=== PATIENT | female | born 1960 | race Two or more races ===

== ENCOUNTER 2020-07-03 12:17 | Outpatient (REF) | payer OTHER, SELFPAY | END 2020-07-03 12:18 | disposition home or self-care (01) | LOC: HO.LAB 12:17 | PROVIDERS: Visit Provider Internal Medicine | DX: Z20.828 Contact with and (suspected) exposure to other viral communicable diseases (principal) | CPT/HCPCS: C9803; U0003 ==

== ENCOUNTER 2020-12-15 12:19 | Inpatient (IN) | payer OTHER, SELFPAY ==
--- NOTE | 2020-12-15 | ECG_ITS ---
Test Reason : CLEARANCE Blood Pressure : / mmHG Vent. Rate : 062 BPM Atrial Rate : 062 BPM P-R Int : 148 ms QRS Dur : 090 ms QT Int : 426 ms P-R-T Axes : 025 -01 -10 degrees QTc Int : 432 ms Normal sinus rhythm Minimal voltage criteria for LVH, may be normal variant T wave abnormality, consider inferior ischemia T wave abnormality, consider anterior ischemia Abnormal ECG When compared with ECG of 23-FEB-2007 08:08, Non-specific change in ST segment in Anterior leads Inverted T waves have replaced nonspecific T wave abnormality in Inferior leads T wave inversion now evident in Anterior leads Referred By: Katia Candelario Electronically Signed By:CR DYE
--- NOTE | ~2020-12-15 | CT_ITS ---
EXAMINATION: CT HEAD WITHOUT CONTRAST CLINICAL INFORMATION: Altered mental status COMPARISON: None TECHNIQUE: Contiguous axial imaging was performed from the skull base to vertex without intravenous administration of contrast. This CT examination was performed using dose optimization techniques as appropriate, variously including the following: *Automated exposure control *Adjustment of mA and/or kV according to patient size (this includes techniques or standardized protocols for targeted exams where dose is matched to indication/reason for exam; i.e. extremities or head) *Use of iterative reconstruction technique DLP: 566 mGy-cm FINDINGS: There is no evidence of acute intracranial hemorrhage or territorial infarction. No abnormal mass effect or midline shift is seen. Jacques to white matter differentiation is well preserved. No extra-axial fluid collections are identified. The ventricles are normal in size. There is no abnormal attenuation within the brain parenchyma. Bilateral basal ganglia calcifications are noted. The osseous structures and soft tissues are normal. Mild mucosal thickening of the left maxillary sinus. CT/CT head/brain wo con IMPRESSION: 1. No acute intracranial pathology. 2. Mild sinus disease.
[2020-12-15 12:38] VITALS: BP 117/75; PULSE 81; RESP 18; TEMP 36.9; O2SAT 96; BMI 33.7
--- NOTE | 2020-12-15 12:57 | ED_ITS ---
HPI - Psych General Chief Complaint: Psychiatric Symptoms <OSIEL Faulkner - Last Filed: 12/15/20 17:30> Stated Complaint: CRISIS <OSIEL Faulkner - Last Filed: 12/15/20 17:30> Time Seen by Provider: 12/15/20 12:52 <OSIEL Faulkner Last Filed: 12/15/20 17:30> Source: patient and family <OSIEL Faulkner - Last Filed: 12/15/20 17:30> Mode of arrival: ambulatory <OSIEL Faulkner - Last Filed: 12/15/20 17:30> Limitations: no limitations <OSIEL Faulkner Last Filed: 12/15/20 17:30> History of Present Illness HPI Narrative: 60 y/o female with history of anemia, hypothyroidism, degenerative joint disease, s/p hip replacement in the past, history of daily ETOH use who presents to the ED with her [employer] with reports of extreme paranoia evolving over the last 2 months. Her [employer] states that about 2 months ago the patient reported that her neighbors downloaded an sophia on their phones to record and monitor her on her Karyn and tablet. She thinks they are watching her and keeping track of her movements. She has been much more restless lately, wandering around stores when brought out, being more agitated and anxious. Her [employer] is a friend of the last 15 years and states this behavior is all new over the last 2 months. She is a daily drinker, 5-6 tall boys every night so she can sleep. She has been through alcohol withdrawal at home but never required hospitalization for it. Patient's neighbor told [employer] they saw her cut her screen in her 4th story apartment and she was planning on jumping out of it. No history of suicidal thoughts or attempts in the past. She denies drug use. <OSIEL Faulkner - Last Filed: 12/15/20 17:30> MD complaint: alcohol abuse <OSIEL Faulkner - Last Filed: 12/15/20 17:30> Onset (ago): month(s) (2) <OSIEL Faulkner Last Filed: 12/15/20 17:30> Duration: changing over time and getting worse <OSIEL Faulkner - Last Filed: 12/15/20 17:30> History of same: No <OSIEL Faulkner Last Filed: 12/15/20 17:30> Relieving factors: none <OSIEL Falukner Last Filed: 12/15/20 17:30> Exacerbating factors: alcohol <OSIEL Faulkner Last Filed: 12/15/20 17:30> Context: recent alcohol abuse <OSIEL Faulkner Last Filed: 12/15/20 17:30> Associated psychiatric symptoms: depression, suicidal ideation and delusions <OSIEL Faulkner Last Filed: 12/15/20 17:30> Associated symptoms: denies other symptoms <OSIEL Faulkner Last Filed: 12/15/20 17:30> Treatments prior to arrival: none <OSIEL Faulkner Last Filed: 12/15/20 17:30> If self harm: admits thoughts of self harm and has plan <OSIEL Faulkner Last Filed: 12/15/20 17:30> Related Data Home Medications: Home Medications Medication Instructions Recorded Confirmed levothyroxine 1 tab PO DAILY 12/15/20 12/15/20 trazodone 1 tab PO BEDTIME 12/15/20 12/15/20 <OSIEL Faulkner Last Filed: 12/15/20 17:30> Allergies/Adverse Reactions: Allergies Allergy/AdvReac Type Severity Reaction Status Date / Time metoclopramide AdvReac Unknown BRADYCARDIA Unverified 12/15/20 12:37 morphine AdvReac Unknown SEIZURE Unverified 12/15/20 12:37 <OSIEL Faulkner Last Filed: 12/15/20 17:30> Review of Systems Review of Systems: Constitutional: No Fever, No Chills ENT/Mouth: No sore throat, No Rhinorrhea, No Swallowing Difficulty Cardiovascular: No Chest Pain, No SOB, No Orthopnea, No Edema Respiratory: No Cough, No Sputum, No Wheezing, No dyspnea Gastrointestinal: No Nausea, No Vomiting, No Diarrhea, No abdominal Pain Genitourinary: No Dysuria, No Urinary Frequency, No Hematuria Musculoskeletal: No joint pain, No Myalgias Skin: No Skin Lesions, No rash Neuro: No Weakness, No Numbness, No Dizziness, No Headache Psych: + Anxiety/Panic, + Depression, +SI, no HI, no AH/VH Heme/Lymph: No Bruising, No Lymphadenopathy Endocrine: No Polyuria, No Polydipsia <OSIEL Faulkner - Last Filed: 12/15/20 17:30> [facility] Past Medical History Attestation statement: The following information was validated with the patient. <OSIEL Faulkner - Last Filed: 12/15/20 17:30> Medical History: Medical History (Updated 12/15/20 @ 17:28 by OSIEL Faulkner) Alcohol dependence Hypothyroidism <OSIEL Faulkner - Last Filed: 12/15/20 17:30> Social History Social History: Social History Advance Directives: No Advance Directives Information Provided: Yes Healthcare Proxy: Yes (Amy Barboza, sister [phone]) Guardian: No <OSIEL Faulkner - Last Filed: 12/15/20 17:30> Physical Exam Vital Signs: Vital Signs: Last Vital Signs Temp 98.4 F 12/16/20 03:09 Pulse 68 12/16/20 04:18 Resp 20 12/16/20 04:18 BP 111/51 L 12/16/20 04:18 Pulse Ox 96 12/16/20 04:18 Body Mass Index 33.7 Appearance: Alert. Oriented X3. No acute distress. Eyes: Pupils equal, round and reactive to light. ENT: Pharynx normal. Neck: Normal inspection. Neck supple. CVS: Normal heart rate and rhythm. Pulses normal. Respiratory: No respiratory distress. Breath sounds normal. Abdomen: Obese, Soft and nontender. +BS x4 Skin: Skin warm and dry. Normal skin color. Normal skin turgor. No rashes. Extremities: No lower extremity edema. Neuro/Psych: Oriented X 3. No motor deficit. No sensory deficit. Flat affect. Poor insight and judgement. +SI with plan. <OSIEL Faulkner - Last Filed: 12/15/20 17:30> Vital Signs: Last Vital Signs Temp 98.4 F 12/16/20 03:09 Pulse 68 12/16/20 04:18 Resp 20 12/16/20 04:18 BP 111/51 L 12/16/20 04:18 Pulse Ox 96 12/16/20 04:18 Body Mass Index 33.7 <Andre Cha NP - Last Filed: 12/15/20 18:31> Vital Signs: Last Vital Signs Temp 98.4 F 12/16/20 03:09 Pulse 68 12/16/20 04:18 Resp 20 12/16/20 04:18 BP 111/51 L 12/16/20 04:18 Pulse Ox 96 12/16/20 04:18 Body Mass Index 33.7 <Katia Candelario MD - Last Filed: 12/16/20 04:21> Course Course Course Narrative: 60 y/o female presenting with new onset of paranoia and delusions. Ongoing daily ETOH abuse. No history of similar behavior with new SI and plan. Will need to get full metabolic workup and have N seen her once medically cleared. <OSIEL Faulkner - Last Filed: 12/15/20 17:30> Patient is being admitted to . An EKG was done, patient has T-wave inversions in multiple leads including III, aVF, V1 through V5. Patient has no chest pain. Patient is stable, troponin pending. EKG from 2006 for comparison is normal Head CT within normal limits There is no evidence of acute intracranial hemorrhage or territorial infarction. No abnormal mass effect or midline shift is seen. Jacques to white matter differentiation is well preserved. No extra-axial fluid collections are identified. The ventricles are normal in size. There is no abnormal attenuation within the brain parenchyma. Bilateral basal ganglia calcifications are noted. The osseous structures and soft tissues are normal. Mild mucosal thickening of the left maxillary sinus. CT/CT head/brain wo con IMPRESSION: 1. No acute intracranial pathology. 2. Mild sinus disease. Patient's 2nd troponin is 7.2, EKG 2. Shows no acute changes, similar to 1st EKG. Patient is medically cleared. <Katia Candelario MD - Last Filed: 12/16/20 04:21> Reevaluation(s) Reevaluation #1: TSH elevated but T4 is normal. Will need outpatient follow up for this. Her ETOh level was 14. Reports anxiety now. Was given 1 mg PO ativan. BHN pending. Will need to monitor CIWA scores for signs of withdrawal. Med rec completed. Physician observation started at 3pm. Patient placed in physician observation because patient is awaiting [facility] evaluation for the possible need of inpatient [facility] admission. At the time observation was started patient's vital signs were stable. Patient is alert and oriented. Neuro exam is non-focal. CV: RRR and lungs are clear. Will continue to monitor. <OSIEL Faulkner - Last Filed: 12/15/20 17:30> MDM - Psych Lab Data Result diagrams: : 12/15/20 13:50 12/15/20 13:50 <OSIEL Faulkner - Last Filed: 12/15/20 17:30> Labs: Lab Results 12/15/20 12/15/20 12/15/20 Range/Units 13:50 13:50 13:50 WBC 6.8 (4.8-10.8) X10*3/uL RBC 4.20 (4.20-5.50) X10*6/uL Hgb 13.2 (12.0-16.0) g/dl Hct 39.6 (37-47) % MCV 94.3 (80-98) fL MCH 31.4 (27.0-33.0) pg MCHC 33.3 (31.0-35.0) g/dl RDW 13.2 (11.0-16.0) % Plt Count 273 (160-400) X10*3/uL MPV 9.1 L (9.4-12.3) fL Immature Gran % (Auto) 0.6 H (0.0-0.4) % Neut % (Auto) 71.1 (45-73) % Lymph % (Auto) 21.3 (20-40) % [place] % (Auto) 5.4 (2-11) % Eos % (Auto) 0.9 (0-4) % Baso % (Auto) 0.7 (0-2) % Lymph # (Auto) 1.5 (1.2-4.9) X10*3/uL [place] # (Auto) 0.4 (0.1-1.2) X10*3/uL Eos # (Auto) 0.1 (0.0-0.4) X10*3/uL Baso # (Auto) 0.1 (0.0-0.2) X10*3/uL Abs Immat Gran (auto) 0.04 H (0.00-0.03) X10*3/uL Absolute Neuts (auto) 4.9 (2.0-8.3) X10*3/uL Absolute Nucleated RBC 0.000 (0.0-0.012) X10*3/uL Nucleated RBC % (auto) 0.0 (0.0-0.2) /100WBC Sodium 138 (135-145) mmol/L Potassium 4.2 (3.3-5.1) mmol/L Chloride 103 (96-108) mmol/L Carbon Dioxide 25 (22-29) mmol/L Anion Gap 14 (12-20) BUN 10 (9-16) mg/dL Creatinine 0.80 (0.5-1.4) mg/dL Estim Creat Clear Calc 42.2 Estimated GFR > 60 Random Glucose 138 H (60-115) mg/dL Calcium 9.6 (8.4-10.2) mg/dL Magnesium 2.2 (1.6-2.6) mg/dL Total Bilirubin 0.6 (0.0-1.0) mg/dL Direct Bilirubin 0.3 (0.0-0.5) mg/dL AST 67 H (5-31) U/L ALT 50 H (0-31) U/L Alkaline Phosphatase 74 (39-117) U/L Troponin I High Sens (<3.5-17.0) ng/L Total Protein 7.9 (6.5-8.0) g/dL Albumin 4.4 (3.5-5.0) g/dL TSH (0.32-4.0) uIU/mL Free T4 (0.71-1.85) ng/dL Ethyl Alcohol mg/dL COVID-19 ([facility]IS) Negative (Negative) COVID-19 Clin Com See Note 12/15/20 12/15/20 12/16/20 Range/Units 13:50 13:50 00:15 WBC (4.8-10.8) X10*3/uL RBC (4.20-5.50) X10*6/uL Hgb (12.0-16.0) g/dl Hct (37-47) % MCV (80-98) fL MCH (27.0-33.0) pg MCHC (31.0-35.0) g/dl RDW (11.0-16.0) % Plt Count (160-400) X10*3/uL MPV (9.4-12.3) fL Immature Gran % (Auto) (0.0-0.4) % Neut % (Auto) (45-73) % Lymph % (Auto) (20-40) % [place] % (Auto) (2-11) % Eos % (Auto) (0-4) % Baso % (Auto) (0-2) % Lymph # (Auto) (1.2-4.9) X10*3/uL [place] # (Auto) (0.1-1.2) X10*3/uL Eos # (Auto) (0.0-0.4) X10*3/uL Baso # (Auto) (0.0-0.2) X10*3/uL Abs Immat Gran (auto) (0.00-0.03) X10*3/uL Absolute Neuts (auto) (2.0-8.3) X10*3/uL Absolute Nucleated RBC (0.0-0.012) X10*3/uL Nucleated RBC % (auto) (0.0-0.2) /100WBC Sodium (135-145) mmol/L Potassium (3.3-5.1) mmol/L Chloride (96-108) mmol/L Carbon Dioxide (22-29) mmol/L Anion Gap (12-20) BUN (9-16) mg/dL Creatinine (0.5-1.4) mg/dL Estim Creat Clear Calc Estimated GFR Random Glucose (60-115) mg/dL Calcium (8.4-10.2) mg/dL Magnesium (1.6-2.6) mg/dL Total Bilirubin (0.0-1.0) mg/dL Direct Bilirubin (0.0-0.5) mg/dL AST (5-31) U/L ALT (0-31) U/L Alkaline Phosphatase (39-117) U/L Troponin I High Sens 7.2 (<3.5-17.0) ng/L Total Protein (6.5-8.0) g/dL Albumin (3.5-5.0) g/dL TSH 10.77 H (0.32-4.0) uIU/mL Free T4 0.73 (0.71-1.85) ng/dL Ethyl Alcohol 14 mg/dL COVID-19 ([facility]IS) (Negative) COVID-19 Clin Com 12/16/20 Range/Units 03:15 WBC (4.8-10.8) X10*3/uL RBC (4.20-5.50) X10*6/uL Hgb (12.0-16.0) g/dl Hct (37-47) % MCV (80-98) fL MCH (27.0-33.0) pg MCHC (31.0-35.0) g/dl RDW (11.0-16.0) % Plt Count (160-400) X10*3/uL MPV (9.4-12.3) fL Immature Gran % (Auto) (0.0-0.4) % Neut % (Auto) (45-73) % Lymph % (Auto) (20-40) % [place] % (Auto) (2-11) % Eos % (Auto) (0-4) % Baso % (Auto) (0-2) % Lymph # (Auto) (1.2-4.9) X10*3/uL [place] # (Auto) (0.1-1.2) X10*3/uL Eos # (Auto) (0.0-0.4) X10*3/uL Baso # (Auto) (0.0-0.2) X10*3/uL Abs Immat Gran (auto) (0.00-0.03) X10*3/uL Absolute Neuts (auto) (2.0-8.3) X10*3/uL Absolute Nucleated RBC (0.0-0.012) X10*3/uL Nucleated RBC % (auto) (0.0-0.2) /100WBC Sodium (135-145) mmol/L Potassium (3.3-5.1) mmol/L Chloride (96-108) mmol/L Carbon Dioxide (22-29) mmol/L Anion Gap (12-20) BUN (9-16) mg/dL Creatinine (0.5-1.4) mg/dL Estim Creat Clear Calc Estimated GFR Random Glucose (60-115) mg/dL Calcium (8.4-10.2) mg/dL Magnesium (1.6-2.6) mg/dL Total Bilirubin (0.0-1.0) mg/dL Direct Bilirubin (0.0-0.5) mg/dL AST (5-31) U/L ALT (0-31) U/L Alkaline Phosphatase (39-117) U/L Troponin I High Sens 7.2 (<3.5-17.0) ng/L Total Protein (6.5-8.0) g/dL Albumin (3.5-5.0) g/dL TSH (0.32-4.0) uIU/mL Free T4 (0.71-1.85) ng/dL Ethyl Alcohol mg/dL COVID-19 ([facility]IS) (Negative) COVID-19 Clin Com <OSIEL Faulkner - Last Filed: 12/15/20 17:30> Lab Results 12/15/20 12/15/20 12/15/20 Range/Units 13:50 13:50 13:50 WBC 6.8 (4.8-10.8) X10*3/uL RBC 4.20 (4.20-5.50) X10*6/uL Hgb 13.2 (12.0-16.0) g/dl Hct 39.6 (37-47) % MCV 94.3 (80-98) fL MCH 31.4 (27.0-33.0) pg MCHC 33.3 (31.0-35.0) g/dl RDW 13.2 (11.0-16.0) % Plt Count 273 (160-400) X10*3/uL MPV 9.1 L (9.4-12.3) fL Immature Gran % (Auto) 0.6 H (0.0-0.4) % Neut % (Auto) 71.1 (45-73) % Lymph % (Auto) 21.3 (20-40) % [place] % (Auto) 5.4 (2-11) % Eos % (Auto) 0.9 (0-4) % Baso % (Auto) 0.7 (0-2) % Lymph # (Auto) 1.5 (1.2-4.9) X10*3/uL [place] # (Auto) 0.4 (0.1-1.2) X10*3/uL Eos # (Auto) 0.1 (0.0-0.4) X10*3/uL Baso # (Auto) 0.1 (0.0-0.2) X10*3/uL Abs Immat Gran (auto) 0.04 H (0.00-0.03) X10*3/uL Absolute Neuts (auto) 4.9 (2.0-8.3) X10*3/uL Absolute Nucleated RBC 0.000 (0.0-0.012) X10*3/uL Nucleated RBC % (auto) 0.0 (0.0-0.2) /100WBC Sodium 138 (135-145) mmol/L Potassium 4.2 (3.3-5.1) mmol/L Chloride 103 (96-108) mmol/L Carbon Dioxide 25 (22-29) mmol/L Anion Gap 14 (12-20) BUN 10 (9-16) mg/dL Creatinine 0.80 (0.5-1.4) mg/dL Estim Creat Clear Calc 42.2 Estimated GFR > 60 Random Glucose 138 H (60-115) mg/dL Calcium 9.6 (8.4-10.2) mg/dL Magnesium 2.2 (1.6-2.6) mg/dL Total Bilirubin 0.6 (0.0-1.0) mg/dL Direct Bilirubin 0.3 (0.0-0.5) mg/dL AST 67 H (5-31) U/L ALT 50 H (0-31) U/L Alkaline Phosphatase 74 (39-117) U/L Troponin I High Sens (<3.5-17.0) ng/L Total Protein 7.9 (6.5-8.0) g/dL Albumin 4.4 (3.5-5.0) g/dL TSH (0.32-4.0) uIU/mL Free T4 (0.71-1.85) ng/dL Ethyl Alcohol mg/dL COVID-19 ([facility]IS) Negative (Negative) COVID-19 Clin Com See Note 05/04/21 05/04/21 05/05/21 Range/Units 13:50 13:50 00:15 WBC (4.8-10.8) X10*3/uL RBC (4.20-5.50) X10*6/uL Hgb (12.0-16.0) g/dl Hct (37-47) % MCV (80-98) fL MCH (27.0-33.0) pg MCHC (31.0-35.0) g/dl RDW (11.0-16.0) % Plt Count (160-400) X10*3/uL MPV (9.4-12.3) fL Immature Gran % (Auto) (0.0-0.4) % Neut % (Auto) (45-73) % Lymph % (Auto) (20-40) % [place] % (Auto) (2-11) % Eos % (Auto) (0-4) % Baso % (Auto) (0-2) % Lymph # (Auto) (1.2-4.9) X10*3/uL [place] # (Auto) (0.1-1.2) X10*3/uL Eos # (Auto) (0.0-0.4) X10*3/uL Baso # (Auto) (0.0-0.2) X10*3/uL Abs Immat Gran (auto) (0.00-0.03) X10*3/uL Absolute Neuts (auto) (2.0-8.3) X10*3/uL Absolute Nucleated RBC (0.0-0.012) X10*3/uL Nucleated RBC % (auto) (0.0-0.2) /100WBC Sodium (135-145) mmol/L Potassium (3.3-5.1) mmol/L Chloride (96-108) mmol/L Carbon Dioxide (22-29) mmol/L Anion Gap (12-20) BUN (9-16) mg/dL Creatinine (0.5-1.4) mg/dL Estim Creat Clear Calc Estimated GFR Random Glucose (60-115) mg/dL Calcium (8.4-10.2) mg/dL Magnesium (1.6-2.6) mg/dL Total Bilirubin (0.0-1.0) mg/dL Direct Bilirubin (0.0-0.5) mg/dL AST (5-31) U/L ALT (0-31) U/L Alkaline Phosphatase (39-117) U/L Troponin I High Sens 7.2 (<3.5-17.0) ng/L Total Protein (6.5-8.0) g/dL Albumin (3.5-5.0) g/dL TSH 10.77 H (0.32-4.0) uIU/mL Free T4 0.73 (0.71-1.85) ng/dL Ethyl Alcohol 14 mg/dL COVID-19 ([facility]IS) (Negative) COVID-19 Clin Com 12/16/20 Range/Units 03:15 WBC (4.8-10.8) X10*3/uL RBC (4.20-5.50) X10*6/uL Hgb (12.0-16.0) g/dl Hct (37-47) % MCV (80-98) fL MCH (27.0-33.0) pg MCHC (31.0-35.0) g/dl RDW (11.0-16.0) % Plt Count (160-400) X10*3/uL MPV (9.4-12.3) fL Immature Gran % (Auto) (0.0-0.4) % Neut % (Auto) (45-73) % Lymph % (Auto) (20-40) % [place] % (Auto) (2-11) % Eos % (Auto) (0-4) % Baso % (Auto) (0-2) % Lymph # (Auto) (1.2-4.9) X10*3/uL [place] # (Auto) (0.1-1.2) X10*3/uL Eos # (Auto) (0.0-0.4) X10*3/uL Baso # (Auto) (0.0-0.2) X10*3/uL Abs Immat Gran (auto) (0.00-0.03) X10*3/uL Absolute Neuts (auto) (2.0-8.3) X10*3/uL Absolute Nucleated RBC (0.0-0.012) X10*3/uL Nucleated RBC % (auto) (0.0-0.2) /100WBC Sodium (135-145) mmol/L Potassium (3.3-5.1) mmol/L Chloride (96-108) mmol/L Carbon Dioxide (22-29) mmol/L Anion Gap (12-20) BUN (9-16) mg/dL Creatinine (0.5-1.4) mg/dL Estim Creat Clear Calc Estimated GFR Random Glucose (60-115) mg/dL Calcium (8.4-10.2) mg/dL Magnesium (1.6-2.6) mg/dL Total Bilirubin (0.0-1.0) mg/dL Direct Bilirubin (0.0-0.5) mg/dL AST (5-31) U/L ALT (0-31) U/L Alkaline Phosphatase (39-117) U/L Troponin I High Sens 7.2 (<3.5-17.0) ng/L Total Protein (6.5-8.0) g/dL Albumin (3.5-5.0) g/dL TSH (0.32-4.0) uIU/mL Free T4 (0.71-1.85) ng/dL Ethyl Alcohol mg/dL COVID-19 ([facility]) (Negative) COVID-19 Clin Com <Andre Cha NP - Last Filed: 12/15/20 18:31> Lab Results 12/15/20 12/15/20 12/15/20 Range/Units 13:50 13:50 13:50 WBC 6.8 (4.8-10.8) X10*3/uL RBC 4.20 (4.20-5.50) X10*6/uL Hgb 13.2 (12.0-16.0) g/dl Hct 39.6 (37-47) % MCV 94.3 (80-98) fL MCH 31.4 (27.0-33.0) pg MCHC 33.3 (31.0-35.0) g/dl RDW 13.2 (11.0-16.0) % Plt Count 273 (160-400) X10*3/uL MPV 9.1 L (9.4-12.3) fL Immature Gran % (Auto) 0.6 H (0.0-0.4) % Neut % (Auto) 71.1 (45-73) % Lymph % (Auto) 21.3 (20-40) % [place] % (Auto) 5.4 (2-11) % Eos % (Auto) 0.9 (0-4) % Baso % (Auto) 0.7 (0-2) % Lymph # (Auto) 1.5 (1.2-4.9) X10*3/uL [place] # (Auto) 0.4 (0.1-1.2) X10*3/uL Eos # (Auto) 0.1 (0.0-0.4) X10*3/uL Baso # (Auto) 0.1 (0.0-0.2) X10*3/uL Abs Immat Gran (auto) 0.04 H (0.00-0.03) X10*3/uL Absolute Neuts (auto) 4.9 (2.0-8.3) X10*3/uL Absolute Nucleated RBC 0.000 (0.0-0.012) X10*3/uL Nucleated RBC % (auto) 0.0 (0.0-0.2) /100WBC Sodium 138 (135-145) mmol/L Potassium 4.2 (3.3-5.1) mmol/L Chloride 103 (96-108) mmol/L Carbon Dioxide 25 (22-29) mmol/L Anion Gap 14 (12-20) BUN 10 (9-16) mg/dL Creatinine 0.80 (0.5-1.4) mg/dL Estim Creat Clear Calc 42.2 Estimated GFR > 60 Random Glucose 138 H (60-115) mg/dL Calcium 9.6 (8.4-10.2) mg/dL Magnesium 2.2 (1.6-2.6) mg/dL Total Bilirubin 0.6 (0.0-1.0) mg/dL Direct Bilirubin 0.3 (0.0-0.5) mg/dL AST 67 H (5-31) U/L ALT 50 H (0-31) U/L Alkaline Phosphatase 74 (39-117) U/L Troponin I High Sens (<3.5-17.0) ng/L Total Protein 7.9 (6.5-8.0) g/dL Albumin 4.4 (3.5-5.0) g/dL TSH (0.32-4.0) uIU/mL Free T4 (0.71-1.85) ng/dL Ethyl Alcohol mg/dL COVID-19 ([facility]IS) Negative (Negative) COVID-19 Clin Com See Note 12/15/20 12/15/20 12/16/20 Range/Units 13:50 13:50 00:15 WBC (4.8-10.8) X10*3/uL RBC (4.20-5.50) X10*6/uL Hgb (12.0-16.0) g/dl Hct (37-47) % MCV (80-98) fL MCH (27.0-33.0) pg MCHC (31.0-35.0) g/dl RDW (11.0-16.0) % Plt Count (160-400) X10*3/uL MPV (9.4-12.3) fL Immature Gran % (Auto) (0.0-0.4) % Neut % (Auto) (45-73) % Lymph % (Auto) (20-40) % [place] % (Auto) (2-11) % Eos % (Auto) (0-4) % Baso % (Auto) (0-2) % Lymph # (Auto) (1.2-4.9) X10*3/uL [place] # (Auto) (0.1-1.2) X10*3/uL Eos # (Auto) (0.0-0.4) X10*3/uL Baso # (Auto) (0.0-0.2) X10*3/uL Abs Immat Gran (auto) (0.00-0.03) X10*3/uL Absolute Neuts (auto) (2.0-8.3) X10*3/uL Absolute Nucleated RBC (0.0-0.012) X10*3/uL Nucleated RBC % (auto) (0.0-0.2) /100WBC Sodium (135-145) mmol/L Potassium (3.3-5.1) mmol/L Chloride (96-108) mmol/L Carbon Dioxide (22-29) mmol/L Anion Gap (12-20) BUN (9-16) mg/dL Creatinine (0.5-1.4) mg/dL Estim Creat Clear Calc Estimated GFR Random Glucose (60-115) mg/dL Calcium (8.4-10.2) mg/dL Magnesium (1.6-2.6) mg/dL Total Bilirubin (0.0-1.0) mg/dL Direct Bilirubin (0.0-0.5) mg/dL AST (5-31) U/L ALT (0-31) U/L Alkaline Phosphatase (39-117) U/L Troponin I High Sens 7.2 (<3.5-17.0) ng/L Total Protein (6.5-8.0) g/dL Albumin (3.5-5.0) g/dL TSH 10.77 H (0.32-4.0) uIU/mL Free T4 0.73 (0.71-1.85) ng/dL Ethyl Alcohol 14 mg/dL COVID-19 ([facility]) (Negative) COVID-19 Clin Com 12/16/20 Range/Units 03:15 WBC (4.8-10.8) X10*3/uL RBC (4.20-5.50) X10*6/uL Hgb (12.0-16.0) g/dl Hct (37-47) % MCV (80-98) fL MCH (27.0-33.0) pg MCHC (31.0-35.0) g/dl RDW (11.0-16.0) % Plt Count (160-400) X10*3/uL MPV (9.4-12.3) fL Immature Gran % (Auto) (0.0-0.4) % Neut % (Auto) (45-73) % Lymph % (Auto) (20-40) % [place] % (Auto) (2-11) % Eos % (Auto) (0-4) % Baso % (Auto) (0-2) % Lymph # (Auto) (1.2-4.9) X10*3/uL [place] # (Auto) (0.1-1.2) X10*3/uL Eos # (Auto) (0.0-0.4) X10*3/uL Baso # (Auto) (0.0-0.2) X10*3/uL Abs Immat Gran (auto) (0.00-0.03) X10*3/uL Absolute Neuts (auto) (2.0-8.3) X10*3/uL Absolute Nucleated RBC (0.0-0.012) X10*3/uL Nucleated RBC % (auto) (0.0-0.2) /100WBC Sodium (135-145) mmol/L Potassium (3.3-5.1) mmol/L Chloride (96-108) mmol/L Carbon Dioxide (22-29) mmol/L Anion Gap (12-20) BUN (9-16) mg/dL Creatinine (0.5-1.4) mg/dL Estim Creat Clear Calc Estimated GFR Random Glucose (60-115) mg/dL Calcium (8.4-10.2) mg/dL Magnesium (1.6-2.6) mg/dL Total Bilirubin (0.0-1.0) mg/dL Direct Bilirubin (0.0-0.5) mg/dL AST (5-31) U/L ALT (0-31) U/L Alkaline Phosphatase (39-117) U/L Troponin I High Sens 7.2 (<3.5-17.0) ng/L Total Protein (6.5-8.0) g/dL Albumin (3.5-5.0) g/dL TSH (0.32-4.0) uIU/mL Free T4 (0.71-1.85) ng/dL Ethyl Alcohol mg/dL COVID-19 ([facility]) (Negative) COVID-19 Clin Com <Katia Candelario MD - Last Filed: 12/16/20 04:21> Discharge Plan Discharge Prescriptions: No Action levothyroxine 175 mcg tablet 1 tab PO DAILY RF: 0 trazodone 50 mg tablet 1 tab PO BEDTIME RF: 0 <OSIEL Faulkner - Last Filed: 12/15/20 17:30>
[2020-12-15 13:57] LABS: MANUAL DIFF FLAG NO
[2020-12-15 13:58] LABS: Basophils Absolute Auto 0.1 X10*3/uL (0.0-0.2); Basophils Percent Auto 0.7 % (0-2); Eosinophils Absolute Auto 0.1 X10*3/uL (0.0-0.4); Eosinophils Percent Auto 0.9 % (0-4); Hematocrit 39.6 % (37-47); Hemoglobin 13.2 g/dl (12.0-16.0); Imm Gran Abs Auto 0.04 X10*3/uL (0.00-0.03); Imm Gran Pct Auto 0.6 % (0.0-0.4); Lymphocytes Absolute Auto 1.5 X10*3/uL (1.2-4.9); Lymphocytes Percent Auto 21.3 % (20-40); Mean Corpuscular HGB Conc 33.3 g/dl (31.0-35.0); Mean Corpuscular Hemoglobin 31.4 pg (27.0-33.0); Mean Corpuscular Volume 94.3 fL (80-98); Mean Platelet Volume 9.1 fL (9.4-12.3); Monocytes Absolute Auto 0.4 X10*3/uL (0.1-1.2); Monocytes Percent Auto 5.4 % (2-11); Neutrophils Absolute Auto 4.9 X10*3/uL (2.0-8.3); Neutrophils Percent Auto 71.1 % (45-73); Platelet Count 273 X10*3/uL (160-400); Red Cell Distribution Width 13.2 % (11.0-16.0); White Blood Count 6.8 X10*3/uL (4.8-10.8)
[2020-12-15 14:14] LABS: COVID-19 Test Negative (Negative); IDNOW Serial# 08D9AD1C
[2020-12-15 14:25] LABS: Ethanol 14 mg/dL
[2020-12-15 14:27] LABS: Alanine Aminotransferase 50 U/L (0-31); Albumin Level 4.4 g/dL (3.5-5.0); Alkaline Phosphatase 74 U/L (39-117); Anion Gap 14 (12-20); Aspartate Amino Transferase 67 U/L (5-31); Bilirubin Direct 0.3 mg/dL (0.0-0.5); Bilirubin Total 0.6 mg/dL (0.0-1.0); Blood Urea Nitrogen 10 mg/dL (9-16); Calcium 9.6 mg/dL (8.4-10.2); Carbon Dioxide 25 mmol/L (22-29); Chloride 103 mmol/L (96-108); Creatinine Clr Calc Pharmacy 42.2; Estimated Glomerular Filt Rate > 60; Glucose Random 138 mg/dL (60-115); Magnesium 2.2 mg/dL (1.6-2.6); Potassium 4.2 mmol/L (3.3-5.1); Sodium 138 mmol/L (135-145); Total Protein 7.9 g/dL (6.5-8.0)
--- NOTE | 2020-12-15 14:38 | PC.NURSE ---
changed into hosp attire, cooperative, ate lunch, dtr at bedside
[2020-12-15 14:48] LABS: TSH reflex Free T4 10.77 uIU/mL (0.32-4.0)
[2020-12-15 15:51] LABS: Free T4 (Free Thyroxine) 0.73 ng/dL (0.71-1.85)
[2020-12-15] MEDS: LORazepam 1 MG TABLET PO (16:35)
--- NOTE | 2020-12-15 16:35 | PC.NURSE ---
pt dropped the first ativan on the floor, wasted in the pixes. medicated with second ativan
--- NOTE | 2020-12-15 18:47 | MHC.CARE ---
[facility] unable to provide a clinician to evaluate pt. CARE team completed evaluation. Disposition is for inpatient psychiatric admission due to pt's presentation of psychosis marked by paranoia, delusions, and significant impairments to insight, judgment, and impulse control. Pt has been presented for admission to , with plan for admission on third shift.
[2020-12-15] MEDS: LORazepam 1 MG TABLET 2 MG PO (18:48)
[2020-12-15 19:27] VITALS: BP 132/65; PULSE 78; RESP 16; O2SAT 98
--- NOTE | 2020-12-15 19:28 | PC.NURSE ---
Addendum entered by Ivone Frey LCSW 12/16/20 01:52: Pt was evaluated by CARE team with plan for inpatient psych placement. Original Note: pt has been up and pacing treatment area on 3 occasions from approx 1600to 1830. pt was medicated x 2 with ativan with desired affect. pt is easily redirectable and has tolerated all of meal tray. plan of care is to have cecelia waller pt in am. pt was made aware of plan of care via interpretter.
[2020-12-15 22:28] VITALS: BP 104/65; PULSE 74; RESP 20; TEMP 37.2; O2SAT 98
[2020-12-15] MEDS: traZODone HCL 50 MG TABLET PO (23:00)
--- NOTE | 2020-12-16 | ECG_ITS ---
Test Reason : ABNORMAL EKG Blood Pressure : / mmHG Vent. Rate : 062 BPM Atrial Rate : 062 BPM P-R Int : 136 ms QRS Dur : 092 ms QT Int : 430 ms P-R-T Axes : 011 037 000 degrees QTc Int : 436 ms Normal sinus rhythm T wave abnormality, consider anterior ischemia Abnormal ECG When compared with ECG of 15-DEC-2020 23:32, Inferior T inversion less prominent Referred By: Katia Candelario Electronically Signed By:CR DYE
[2020-12-16 00:19] VITALS: BP 109/61; PULSE 83; RESP 18; O2SAT 97
[2020-12-16 01:22] LABS: Troponin-I High Sensitivity 7.2 ng/L (<3.5-17.0)
[2020-12-16 03:09] VITALS: BP 115/54; PULSE 70; RESP 20; TEMP 36.9; O2SAT 96
--- NOTE | 2020-12-16 03:18 | PC.NURSE ---
Pt resting on stretcher in NAD, breathing with ease on RA. VSS. Pt on desk monitor, 2nd trop obtained and sent to lab for processing. Pt offers no complaints/concerns at this time. Stretcher in lowest locked position, rails raised, call hanson within reach. Sitter at bedside. Pt provided PO per request. All needs met. Pt aware of need for UA when pt able to provide.
[2020-12-16 03:50] LABS: Troponin-I High Sensitivity 7.2 ng/L (<3.5-17.0)
[2020-12-16 04:18] VITALS: BP 111/51; PULSE 68; RESP 20; O2SAT 96
--- NOTE | 2020-12-16 07:29 | PC.NURSE ---
PT SLEEPING,, AWAITING BED ON M5. SITTER MAINTAINED
--- NOTE | 2020-12-16 09:22 | PC.NURSE ---
REPORT TO JACQUIE ON M5
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
[2020-12-16] MEDS: Folic Acid 1 MG TABLET PO (14:28)
[2020-12-16] MEDS: Thiamine HCL 100 MG TABLET 200 MG PO (14:28)
[2020-12-16] MEDS: LORazepam 1 MG TABLET PO (14:28)
[2020-12-16] MEDS: risperiDONE 1 MG TABLET PO (14:28)
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
[2020-12-16 19:10] VITALS: BP 118/69; PULSE 80; TEMP 37
[2020-12-16] MEDS: risperiDONE 0.5 MG TABLET PO (20:48)
[2020-12-16] MEDS: traZODone HCL 50 MG TABLET PO (20:48)
[2020-12-16] MEDS: LORazepam 0.5 MG TABLET PO (20:48)
[2020-12-16] MEDS: Gabapentin 100 MG CAPSULE PO (20:48)
[2020-12-17 07:00] VITALS: BMI 34.3
[2020-12-17 08:30] LABS: Estimated Average Glucose 108 mg/dL; Hemoglobin A1c % 5.4 %
[2020-12-17 08:36] LABS: Cholesterol 234 mg/dL; HDL Cholesterol 98 mg/dL; LDL Cholesterol Calculated 120 mg/dl; Triglycerides 82 mg/dL
[2020-12-17] MEDS: Levothyroxine Sodium 175 MCG TABLET PO (08:41)
[2020-12-17] MEDS: Gabapentin 100 MG CAPSULE PO ×3 (08:41→20:38)
[2020-12-17] MEDS: Folic Acid 1 MG TABLET PO (08:42)
[2020-12-17] MEDS: LORazepam 0.5 MG TABLET PO ×3 (08:42→20:37)
[2020-12-17] MEDS: Thiamine HCL 100 MG TABLET 200 MG PO (08:42)
[2020-12-17] MEDS: risperiDONE 0.5 MG TABLET PO ×2 (08:42→20:38)
[2020-12-17 09:14] LABS: Folate 18.4 ng/mL (> or = 4.0); Vitamin B12 290 pg/mL (200-900)
[2020-12-17 10:55] VITALS: BP 124/61; PULSE 71; RESP 16; TEMP 36.3; O2SAT 97
--- NOTE | 2020-12-17 13:46 | HO.PSYCHPN ---
Subjective Subjective Date of Service: 12/18/20 Reason For Visit: SI Subjective Notes: Conditional Voluntary Interim History: Phyllis reports that sleep was slightly better in that she was able to stay asleep longer. She reports she continues to hear voices but less so than when she was home. She reports voices at times tell her to hurt herself but not as much. She denies SI/HI. She continues to report paranoia towards neighbors insisting that she needs to change apartments so that they can't see TV or bother her through her eyes. CIWA score 3- Medication Compliance: Yes Side effects from medications: No Attending Groups: Intermittent Review of Systems Review of Systems Constitutional: No Fever, No Chills ENT/Mouth: No sore throat, No Rhinorrhea, No Swallowing Difficulty Cardiovascular: No Chest Pain, No SOB, No Orthopnea, No Edema Respiratory: No Cough, No Sputum, No Wheezing, No dyspnea Gastrointestinal: No Nausea, No Vomiting, No Diarrhea, No abdominal Pain Genitourinary: No Dysuria, No Urinary Frequency, No Hematuria Musculoskeletal: No joint pain, No Myalgias Skin: No Skin Lesions, No rash Neuro: No Weakness, No Numbness, No Dizziness, No Headache Psych: + Anxiety/Panic, + Depression, +SI, no HI, no AH/VH Heme/Lymph: No Bruising, No Lymphadenopathy Endocrine: No Polyuria, No Polydipsia Cardiovascular: Denies cool extremities, Denies chest pain, Denies chest pain with activity, Denies diaphoresis, Denies dyspnea and Denies dyspnea on exertion Respiratory: Denies hemoptysis, Denies pain with cough, Denies dyspnea and Denies dyspnea on exertion Gastrointestinal: Denies constipation, Denies fecal incontinence and Denies diarrhea Mental Status Exam Mental Status Exam Narrative: Appearance: short stature, disheveled, very anxious and restless Behavior: restless but cooperative Psychomotor: agitation Speech: clear, normal rate/rhythm/volume, spontaneous TP: tangential TC: paranoid delusions of neighbors sending her messages and voices and monitoring her and able to see through her eyes Mood: anxious Affect: congruent, dysphoric, irritable at times SI:passive HI:denies AH/VH:seeing demons, voices telling her to jump off balcony or cut wrist. Delusions:paranoid delusions Insight/judgment:impaired Memory/cog: alert, oriented to place, somewhat to situation, not month. Will complete MOCA once more stable Diagnostics Vital Signs (24Hr): Vital Signs - 24 hr 12/17/20 19:40 12/18/20 06:00 Temperature 97.4 F 97.0 F Pulse Rate 80 74 Respiratory Rate 16 Blood Pressure 142/75 H 131/76 Pulse Oximetry 98 Body Mass Index 34.3 Labs Results: 12/15/20 13:50 12/15/20 13:50 Labs: Laboratory Results - last 48 hr 12/17/20 12/17/20 12/17/20 08:05 08:05 08:05 Estimat Average Glucose 108 Hemoglobin A1c % 5.4 Triglycerides 82 Cholesterol 234 LDL Cholesterol, Calc 120 HDL Cholesterol 98 Vitamin B12 290 Folate 18.4 Imaging Radiology Impressions: ITS Impressions Head CT 12/15/20 18:30 IMPRESSION: 1. No acute intracranial pathology. 2. Mild sinus disease. Medications Medications Current Medications Generic Name Dose Route Start Last Admin Trade Name Freq PRN Reason Stop Dose Admin Acetaminophen 650 mg 12/16/20 10:09 Acetaminophen 325 Mg Tablet PO Q6H PRN Headache/Pain Mild Scale (1-3) Al Hydroxide/Mg Hydroxide 30 ml 12/16/20 10:09 Magnesium Hydrox/Alum Hydrox 30 Ml Oral.Susp PO Q6H PRN Heartburn/Nausea Folic Acid 1 mg 12/16/20 14:30 12/18/20 09:34 Folic Acid 1 Mg Tablet PO 1 mg DAILY [facility] Administration Gabapentin 100 mg 12/16/20 21:00 12/18/20 09:34 Gabapentin 100 Mg Capsule PO 100 mg TID [facility] Administration Hydroxyzine HCl 25 mg 12/16/20 10:09 Hydroxyzine Hcl 25 Mg Tablet PO Q6H PRN Anxiety Levothyroxine Sodium 175 mcg 12/16/20 09:00 12/18/20 09:34 Levothyroxine Sodium 175 Mcg Tablet PO 175 mcg DAILY [facility] Administration Lorazepam 0.5 mg 12/16/20 15:00 12/18/20 09:34 Lorazepam 0.5 Mg Tablet PO 0.5 mg TID [facility] Administration Lorazepam 1 mg 12/16/20 14:22 Lorazepam 1 Mg Tablet PO Q4H PRN Alcohol Withdrawal Magnesium Hydroxide 30 ml 12/16/20 10:09 Milk Of Magnesia 30 Ml Oral.Susp PO DAILY PRN Constipation Nicotine Polacrilex 2 mg 12/17/20 12:07 Nicotine Polacrilex 2 Mg Gum BUCCAL Q2H PRN Nicotine Cravings Risperidone 0.5 mg 12/16/20 21:00 12/18/20 09:34 Risperidone 0.5 Mg Tablet PO 0.5 mg BID [facility] Administration Thiamine HCl 200 mg 12/16/20 14:30 12/18/20 09:34 Thiamine Hcl 100 Mg Tablet PO 200 mg DAILY [facility] Administration Trazodone HCl 50 mg 12/15/20 21:00 12/17/20 20:38 Trazodone Hcl 50 Mg Tablet PO 50 mg BEDTIME [facility] Administration Trazodone HCl 50 mg 12/16/20 10:09 Trazodone Hcl 50 Mg Tablet PO BEDTIME PRN Insomnia Allergies Allergies Allergy/AdvReac Type Severity Reaction Status Date / Time metoclopramide AdvReac Unknown BRADYCARDIA Unverified 12/15/20 12:37 morphine AdvReac Unknown SEIZURE Unverified 12/15/20 12:37 Assessment & Plan Assessment & Plan (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 Continue CIWA protocol of alcohol withdrawal 2. Standing dose of ativan- given severity of symptoms. 3. Continue risperidone 0.5mg po BID 4. continue folic acid 1mg po daily and thiamine 200mg po daily (2) Alcohol dependence: Status: Acute Code(s): F10.20 - Alcohol dependence, uncomplicated Assessment and Plan: encourage referrals for substance use treatment consider MAT- either naltrexon, campral or disulfiram Greater than 50% of the session was spent on counseling and/or coordination of care Reason for contiued inpatient stay Substantial Risk for: inability to function
[2020-12-17 19:40] VITALS: BP 142/75; PULSE 80; TEMP 36.3
[2020-12-17] MEDS: traZODone HCL 50 MG TABLET PO (20:38)
[2020-12-18 06:00] VITALS: BP 131/76; PULSE 74; RESP 16; TEMP 36.1; O2SAT 98
[2020-12-18] MEDS: Thiamine HCL 100 MG TABLET 200 MG PO (09:34)
[2020-12-18] MEDS: Levothyroxine Sodium 175 MCG TABLET PO (09:34)
[2020-12-18] MEDS: Folic Acid 1 MG TABLET PO (09:34)
[2020-12-18] MEDS: LORazepam 0.5 MG TABLET PO ×3 (09:34→20:35)
[2020-12-18] MEDS: risperiDONE 0.5 MG TABLET PO (09:34)
[2020-12-18] MEDS: Gabapentin 100 MG CAPSULE PO ×3 (09:34→20:34)
--- NOTE | 2020-12-18 13:52 | HO.PSYCHPN ---
Subjective Subjective Date of Service: 12/18/20 Reason For Visit: SI Interim History: Phyllis appears with brighter affect. She is less fearful and less guarded and overwhelmed by voices. She reports hearing less voices. She reports at times voices do tell her to hurt herself. She denies SI/HI. She reports she had difficulty falling and staying asleep last night. She denies VH. She continues to present with paranoia towards neighbors. No complication with alcohol withdrawal. continues on protocol of gabapentin and ativan Review of Systems Review of Systems Constitutional: No Fever, No Chills ENT/Mouth: No sore throat, No Rhinorrhea, No Swallowing Difficulty Cardiovascular: No Chest Pain, No SOB, No Orthopnea, No Edema Respiratory: No Cough, No Sputum, No Wheezing, No dyspnea Gastrointestinal: No Nausea, No Vomiting, No Diarrhea, No abdominal Pain Genitourinary: No Dysuria, No Urinary Frequency, No Hematuria Musculoskeletal: No joint pain, No Myalgias Skin: No Skin Lesions, No rash Neuro: No Weakness, No Numbness, No Dizziness, No Headache Psych: + Anxiety/Panic, + Depression, +SI, no HI, no AH/VH Heme/Lymph: No Bruising, No Lymphadenopathy Endocrine: No Polyuria, No Polydipsia Cardiovascular: Denies cool extremities, Denies chest pain, Denies chest pain with activity, Denies diaphoresis, Denies dyspnea and Denies dyspnea on exertion Respiratory: Denies hemoptysis, Denies pain with cough, Denies dyspnea and Denies dyspnea on exertion Gastrointestinal: Denies constipation, Denies fecal incontinence and Denies diarrhea Mental Status Exam Mental Status Exam Narrative: Appearance: short stature, improved hygiene, in NAD Behavior: cooperative Psychomotor: no agitation or retardation noted Speech: clear, normal rate/rhythm/volume, spontaneous TP: tangential TC: less paranoid delusions, less anxiety Mood: better Affect: brighter, less dysphoric SI:denies HI:denies AH/VH:+CAH Delusions:paranoid delusions Insight/judgment:impaired Memory/cog: alert, oriented to place, somewhat to situation, not month. Will complete MOCA once more stable Diagnostics Vital Signs (24Hr): Vital Signs - 24 hr 12/17/20 19:40 12/18/20 06:00 Temperature 97.4 F 97.0 F Pulse Rate 80 74 Respiratory Rate 16 Blood Pressure 142/75 H 131/76 Pulse Oximetry 98 Body Mass Index 34.3 Labs Results: 12/15/20 13:50 12/15/20 13:50 Labs: Laboratory Results - last 48 hr 12/17/20 12/17/20 12/17/20 08:05 08:05 08:05 Estimat Average Glucose 108 Hemoglobin A1c % 5.4 Triglycerides 82 Cholesterol 234 LDL Cholesterol, Calc 120 HDL Cholesterol 98 Vitamin B12 290 Folate 18.4 Imaging Radiology Impressions: ITS Impressions Head CT 12/15/20 18:30 IMPRESSION: 1. No acute intracranial pathology. 2. Mild sinus disease. Medications Medications Current Medications Generic Name Dose Route Start Last Admin Trade Name Freq PRN Reason Stop Dose Admin Acetaminophen 650 mg 12/16/20 10:09 Acetaminophen 325 Mg Tablet PO Q6H PRN Headache/Pain Mild Scale (1-3) Al Hydroxide/Mg Hydroxide 30 ml 12/16/20 10:09 Magnesium Hydrox/Alum Hydrox 30 Ml Oral.Susp PO Q6H PRN Heartburn/Nausea Folic Acid 1 mg 12/16/20 14:30 12/18/20 09:34 Folic Acid 1 Mg Tablet PO 1 mg DAILY [facility] Administration Gabapentin 100 mg 12/16/20 21:00 12/18/20 09:34 Gabapentin 100 Mg Capsule PO 100 mg TID [facility] Administration Hydroxyzine HCl 25 mg 12/16/20 10:09 Hydroxyzine Hcl 25 Mg Tablet PO Q6H PRN Anxiety Levothyroxine Sodium 175 mcg 12/16/20 09:00 12/18/20 09:34 Levothyroxine Sodium 175 Mcg Tablet PO 175 mcg DAILY [facility] Administration Lorazepam 0.5 mg 12/16/20 15:00 12/18/20 09:34 Lorazepam 0.5 Mg Tablet PO 0.5 mg TID [facility] Administration Lorazepam 1 mg 12/16/20 14:22 Lorazepam 1 Mg Tablet PO Q4H PRN Alcohol Withdrawal Magnesium Hydroxide 30 ml 12/16/20 10:09 Milk Of Magnesia 30 Ml Oral.Susp PO DAILY PRN Constipation Nicotine Polacrilex 2 mg 12/17/20 12:07 Nicotine Polacrilex 2 Mg Gum BUCCAL Q2H PRN Nicotine Cravings Risperidone 0.5 mg 12/16/20 21:00 12/18/20 09:34 Risperidone 0.5 Mg Tablet PO 0.5 mg BID [facility] Administration Thiamine HCl 200 mg 12/16/20 14:30 12/18/20 09:34 Thiamine Hcl 100 Mg Tablet PO 200 mg DAILY [facility] Administration Trazodone HCl 50 mg 12/15/20 21:00 12/17/20 20:38 Trazodone Hcl 50 Mg Tablet PO 50 mg BEDTIME [facility] Administration Trazodone HCl 50 mg 12/16/20 10:09 Trazodone Hcl 50 Mg Tablet PO BEDTIME PRN Insomnia Allergies Allergies Allergy/AdvReac Type Severity Reaction Status Date / Time metoclopramide AdvReac Unknown BRADYCARDIA Unverified 12/15/20 12:37 morphine AdvReac Unknown SEIZURE Unverified 12/15/20 12:37 Assessment & Plan Assessment & Plan (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 Continue CIWA protocol of alcohol withdrawal 2. Standing dose of ativan- given severity of symptoms. Continue Gabapentin 100mg po TID 3. Increase risperidone 0.5mg po daily and 1mg po qhs. 4. continue folic acid 1mg po daily and thiamine 200mg po daily (2) Alcohol dependence: Status: Acute Code(s): F10.20 - Alcohol dependence, uncomplicated Assessment and Plan: encourage referrals for substance use treatment consider MAT- either naltrexon, campral or disulfiram Greater than 50% of the session was spent on counseling and/or coordination of care Reason for contiued inpatient stay Substantial Risk for: harm to self and inability to function
[2020-12-18] MEDS: traZODone HCL 50 MG TABLET PO ×2 (20:34→20:35)
[2020-12-18] MEDS: risperiDONE 1 MG TABLET PO (20:35)
[2020-12-18 23:48] VITALS: BP 110/66; PULSE 78; TEMP 36.2
[2020-12-19 06:00] VITALS: BP 110/59; PULSE 75; RESP 16; TEMP 36.3; O2SAT 99
[2020-12-19] MEDS: Levothyroxine Sodium 175 MCG TABLET PO (08:19)
[2020-12-19] MEDS: LORazepam 0.5 MG TABLET PO ×3 (08:19→20:47)
[2020-12-19] MEDS: risperiDONE 0.5 MG TABLET PO (08:19)
[2020-12-19] MEDS: Folic Acid 1 MG TABLET PO (08:20)
[2020-12-19] MEDS: Gabapentin 100 MG CAPSULE PO ×3 (08:20→20:47)
[2020-12-19] MEDS: Thiamine HCL 100 MG TABLET 200 MG PO (08:20)
--- NOTE | 2020-12-19 08:32 | HO.PSYCHPN ---
Subjective Subjective Date of Service: 12/19/20 Reason For Visit: SI Subjective Notes: 3 Day Interim History: Chart reviewed; case discussed with team. Vitals reviewed: WNL Pt reports she's much better.... and she can tell because she feels hearty...strong. She denies any SI or AVH. She reports tremors have ceased. 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 staff reports pt is at times internally preoccupied Medication Compliance: Yes Attending Groups: No Mental Status Exam Mental Status Exam Narrative: Appearance: short stature, disheveled Behavior: cooperative Psychomotor: no agitation or retardation noted Speech: clear, normal rate/rhythm/volume, spontaneous TP: goal oriented TC: on improved mood Mood: better Affect: congruent SI:denies HI:denies AH/VH:+CAH Delusions:none expressed; recent hx of paranoid delusions Insight/judgment:fair Memory/cog: alert, oriented to place, somewhat to situation, not month. Will complete MOCA once more stable Diagnostics Vital Signs (24Hr): Vital Signs - 24 hr 12/18/20 23:48 12/19/20 06:00 Temperature 97.1 F 97.4 F Pulse Rate 78 75 Respiratory Rate 16 Blood Pressure 110/66 110/59 L Pulse Oximetry 99 Body Mass Index 34.3 Labs Results: 12/15/20 13:50 12/15/20 13:50 Labs: Laboratory Results - last 48 hr 12/17/20 12/17/20 08:05 08:05 Triglycerides 82 Cholesterol 234 LDL Cholesterol, Calc 120 HDL Cholesterol 98 Vitamin B12 290 Folate 18.4 Imaging Radiology Impressions: ITS Impressions Head CT 12/15/20 18:30 IMPRESSION: 1. No acute intracranial pathology. 2. Mild sinus disease. Medications Medications Current Medications Generic Name Dose Route Start Last Admin Trade Name Freq PRN Reason Stop Dose Admin Acetaminophen 650 mg 12/16/20 10:09 Acetaminophen 325 Mg Tablet PO Q6H PRN Headache/Pain Mild Scale (1-3) Al Hydroxide/Mg Hydroxide 30 ml 12/16/20 10:09 Magnesium Hydrox/Alum Hydrox 30 Ml Oral.Susp PO Q6H PRN Heartburn/Nausea Folic Acid 1 mg 12/16/20 14:30 12/19/20 08:20 Folic Acid 1 Mg Tablet PO 1 mg DAILY PACO Administration Gabapentin 100 mg 12/16/20 21:00 12/19/20 08:20 Gabapentin 100 Mg Capsule PO 100 mg TID PACO Administration Hydroxyzine HCl 25 mg 12/16/20 10:09 Hydroxyzine Hcl 25 Mg Tablet PO Q6H PRN Anxiety Levothyroxine Sodium 175 mcg 12/16/20 09:00 12/19/20 08:19 Levothyroxine Sodium 175 Mcg Tablet PO 175 mcg DAILY PACO Administration Lorazepam 0.5 mg 12/16/20 15:00 12/19/20 08:19 Lorazepam 0.5 Mg Tablet PO 0.5 mg TID PACO Administration Lorazepam 1 mg 12/16/20 14:22 Lorazepam 1 Mg Tablet PO Q4H PRN Alcohol Withdrawal Magnesium Hydroxide 30 ml 12/16/20 10:09 Milk Of Magnesia 30 Ml Oral.Susp PO DAILY PRN Constipation Nicotine Polacrilex 2 mg 12/17/20 12:07 Nicotine Polacrilex 2 Mg Gum BUCCAL Q2H PRN Nicotine Cravings Risperidone 0.5 mg 12/19/20 09:00 12/19/20 08:19 Risperidone 0.5 Mg Tablet PO 0.5 mg DAILY PACO Administration Risperidone 1 mg 12/18/20 21:00 12/18/20 20:35 Risperidone 1 Mg Tablet PO 1 mg BEDTIME PACO Administration Thiamine HCl 200 mg 12/16/20 14:30 12/19/20 08:20 Thiamine Hcl 100 Mg Tablet PO 200 mg DAILY PACO Administration Trazodone HCl 50 mg 12/15/20 21:00 12/18/20 20:34 Trazodone Hcl 50 Mg Tablet PO 50 mg BEDTIME PACO Administration Trazodone HCl 50 mg 12/16/20 10:09 12/18/20 20:35 Trazodone Hcl 50 Mg Tablet PO 50 mg BEDTIME PRN Administration Insomnia Allergies Allergies Allergy/AdvReac Type Severity Reaction Status Date / Time metoclopramide AdvReac Unknown BRADYCARDIA Unverified 12/15/20 12:37 morphine AdvReac Unknown SEIZURE Unverified 12/15/20 12:37 Assessment & Plan Assessment & Plan (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 Continue [employer] protocol of alcohol withdrawal (will leave for one more day, though pt seems to have completed w/drawal) 2. Standing dose of ativan- given severity of symptoms. Continue Gabapentin 100mg po TID 3. Increase risperidone 0.5mg po daily and 1mg po qhs. 4. continue folic acid 1mg po daily and thiamine 200mg po daily (2) Alcohol dependence: Status: Acute Code(s): F10.20 - Alcohol dependence, uncomplicated Assessment and Plan: encourage referrals for substance use treatment consider MAT- either naltrexon, campral or disulfiram Greater than 50% of the session was spent on counseling and/or coordination of care Reason for contiued inpatient stay Substantial Risk for: rapid decompensation
--- NOTE | 2020-12-19 10:37 | PC.NURSE ---
PT SIGNED A 3 DAY NOTICE ON SUNDAY 12/17 THAT WILL BE UP ON FRIDAY 12/22
[2020-12-19 18:00] VITALS: BP 116/66; PULSE 80; TEMP 35.9; O2SAT 98
[2020-12-19] MEDS: traZODone HCL 50 MG TABLET PO (20:47)
[2020-12-19] MEDS: risperiDONE 1 MG TABLET PO (20:47)
[2020-12-19] MEDS: hydrOXYzine HCL 25 MG TABLET PO (20:48)
[2020-12-20 06:00] VITALS: BP 107/60; PULSE 74; RESP 16; TEMP 35.6; O2SAT 95
[2020-12-20] MEDS: Levothyroxine Sodium 175 MCG TABLET PO (08:45)
[2020-12-20] MEDS: Folic Acid 1 MG TABLET PO (08:45)
[2020-12-20] MEDS: Gabapentin 100 MG CAPSULE PO ×3 (08:46→21:53)
[2020-12-20] MEDS: LORazepam 0.5 MG TABLET PO ×3 (08:46→21:53)
[2020-12-20] MEDS: Thiamine HCL 100 MG TABLET 200 MG PO (08:46)
[2020-12-20] MEDS: risperiDONE 0.5 MG TABLET PO (08:46)
--- NOTE | 2020-12-20 11:31 | P.PNPSI_ITS ---
Subjective Subjective Date of Service: 12/20/20 Reason For Visit: SI Interim History: Chart reviewed; case discussed with team. Vitals reviewed: grossly wnl pt continues to report mood is better than on admission but is only feeling so- so today; she denies SI and AVH. Pt signed a 3 day notice and hopes to go home monday but accepts she'll need to discuss with primary team. Mental Status Exam Mental Status Exam Narrative: Appearance: short stature, t-shirt, disheveled Behavior: cooperative Psychomotor: no agitation or retardation noted Speech: clear, normal rate/rhythm/volume, spontaneous TP: goal oriented TC: on improved mood Mood: so-so Affect: congruent SI:denies HI:denies AH/VH: denies Delusions:none expressed; recent hx of paranoid delusions Insight/judgment:fair Memory/cog: alert, oriented to place, somewhat to situation, not month. primary team Will complete MOCA once more stable Diagnostics Vital Signs (24Hr): Vital Signs - 24 hr 12/19/20 18:00 12/20/20 06:00 Temperature 96.6 F L 96.1 F L Pulse Rate 80 74 Respiratory Rate 16 Blood Pressure 116/66 107/60 Pulse Oximetry 98 95 Body Mass Index 34.3 Labs Results: 12/15/20 13:50 12/15/20 13:50 Imaging Radiology Impressions: ITS Impressions Head CT 12/15/20 18:30 IMPRESSION: 1. No acute intracranial pathology. 2. Mild sinus disease. Medications Medications Current Medications Generic Name Dose Route Start Last Admin Trade Name Freq PRN Reason Stop Dose Admin Acetaminophen 650 mg 12/16/20 10:09 Acetaminophen 325 Mg Tablet PO Q6H PRN Headache/Pain Mild Scale (1-3) Al Hydroxide/Mg Hydroxide 30 ml 12/16/20 10:09 Magnesium Hydrox/Alum Hydrox 30 Ml Oral.Susp PO Q6H PRN Heartburn/Nausea Folic Acid 1 mg 12/16/20 14:30 12/20/20 08:45 Folic Acid 1 Mg Tablet PO 1 mg DAILY PACO Administration Gabapentin 100 mg 12/16/20 21:00 12/20/20 08:46 Gabapentin 100 Mg Capsule PO 100 mg TID PACO Administration Hydroxyzine HCl 25 mg 12/16/20 10:09 12/19/20 20:48 Hydroxyzine Hcl 25 Mg Tablet PO 25 mg Q6H PRN Administration Anxiety Levothyroxine Sodium 175 mcg 12/16/20 09:00 12/20/20 08:45 Levothyroxine Sodium 175 Mcg Tablet PO 175 mcg DAILY PCAO Administration Lorazepam 0.5 mg 12/16/20 15:00 12/20/20 08:46 Lorazepam 0.5 Mg Tablet PO 0.5 mg TID PACO Administration Lorazepam 1 mg 12/16/20 14:22 Lorazepam 1 Mg Tablet PO Q4H PRN Alcohol Withdrawal Magnesium Hydroxide 30 ml 12/16/20 10:09 Milk Of Magnesia 30 Ml Oral.Susp PO DAILY PRN Constipation Nicotine Polacrilex 2 mg 12/17/20 12:07 Nicotine Polacrilex 2 Mg Gum BUCCAL Q2H PRN Nicotine Cravings Risperidone 0.5 mg 12/19/20 09:00 12/20/20 08:46 Risperidone 0.5 Mg Tablet PO 0.5 mg DAILY PACO Administration Risperidone 1 mg 12/18/20 21:00 12/19/20 20:47 Risperidone 1 Mg Tablet PO 1 mg BEDTIME PACO Administration Thiamine HCl 200 mg 12/16/20 14:30 12/20/20 08:46 Thiamine Hcl 100 Mg Tablet PO 200 mg DAILY PACO Administration Trazodone HCl 50 mg 12/15/20 21:00 12/19/20 20:47 Trazodone Hcl 50 Mg Tablet PO 50 mg BEDTIME PACO Administration Trazodone HCl 50 mg 12/16/20 10:09 12/18/20 20:35 Trazodone Hcl 50 Mg Tablet PO 50 mg BEDTIME PRN Administration Insomnia Allergies Allergies Allergy/AdvReac Type Severity Reaction Status Date / Time metoclopramide AdvReac Unknown BRADYCARDIA Unverified 12/15/20 12:37 morphine AdvReac Unknown SEIZURE Unverified 12/15/20 12:37 Assessment & Plan Assessment & Plan (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 CIWA complete (soon after admission) 2. Standing dose of ativan- given severity of symptoms. Continue Gabapentin 100mg po TID 3. Increase risperidone 0.5mg po daily and 1mg po qhs. 4. continue folic acid 1mg po daily and thiamine 200mg po daily (2) Alcohol dependence: Status: Acute Code(s): F10.20 - Alcohol dependence, uncomplicated Assessment and Plan: encourage referrals for substance use treatment consider MAT- either naltrexon, campral or disulfiram Greater than 50% of the session was spent on counseling and/or coordination of care Reason for contiued inpatient stay Substantial Risk for: rapid decompensation
[2020-12-20 21:20] VITALS: BP 116/66; PULSE 68; RESP 16; TEMP 36.5; O2SAT 97
[2020-12-20] MEDS: risperiDONE 1 MG TABLET PO (21:53)
[2020-12-20] MEDS: traZODone HCL 50 MG TABLET PO (21:54)
[2020-12-21] MEDS: traZODone HCL 50 MG TABLET PO ×2 (01:40→21:31)
[2020-12-21] MEDS: hydrOXYzine HCL 25 MG TABLET PO ×2 (01:40→21:33)
[2020-12-21] MEDS: Levothyroxine Sodium 175 MCG TABLET PO (08:54)
[2020-12-21] MEDS: Gabapentin 100 MG CAPSULE PO ×2 (08:54→21:32)
[2020-12-21] MEDS: Thiamine HCL 100 MG TABLET 200 MG PO (08:54)
[2020-12-21] MEDS: LORazepam 0.5 MG TABLET PO (08:54)
[2020-12-21] MEDS: Folic Acid 1 MG TABLET PO (08:54)
[2020-12-21] MEDS: risperiDONE 0.5 MG TABLET PO (08:54)
--- NOTE | 2020-12-21 14:54 | HO.PSYCHPN ---
Subjective Subjective Date of Service: 12/21/20 Reason For Visit: SI Interim History: Pt somewhat anxious and irrtable today asking to be discharged today. She reports she continues to think that neighbors are playing with my head through that sophia. She reports she continues to hear voices but less. She continues to present with significant paranoid delusions although much more organized. She denies SI/HI. We discussed adding medication to decrease alcohol cravings and she agrees. MOCA completed on 12/21/2020 scored 19/30, most difficulty with visuo spatial, attention, language fluency and repetition. Recall (11/16), orientation (11/17, date off by one day, did not know name of hospital) Review of Systems Review of Systems Constitutional: No Fever, No Chills ENT/Mouth: No sore throat, No Rhinorrhea, No Swallowing Difficulty Cardiovascular: No Chest Pain, No SOB, No Orthopnea, No Edema Respiratory: No Cough, No Sputum, No Wheezing, No dyspnea Gastrointestinal: No Nausea, No Vomiting, No Diarrhea, No abdominal Pain Genitourinary: No Dysuria, No Urinary Frequency, No Hematuria Musculoskeletal: No joint pain, No Myalgias Skin: No Skin Lesions, No rash Neuro: No Weakness, No Numbness, No Dizziness, No Headache Psych: + Anxiety/Panic, + Depression, +SI, no HI, no AH/VH Heme/Lymph: No Bruising, No Lymphadenopathy Endocrine: No Polyuria, No Polydipsia Cardiovascular: Denies cool extremities, Denies chest pain, Denies chest pain with activity, Denies diaphoresis, Denies dyspnea and Denies dyspnea on exertion Respiratory: Denies hemoptysis, Denies pain with cough, Denies dyspnea and Denies dyspnea on exertion Gastrointestinal: Denies constipation, Denies fecal incontinence and Denies diarrhea Mental Status Exam Mental Status Exam Narrative: Appearance: short stature, t-shirt, disheveled Behavior: cooperative Psychomotor: no agitation or retardation noted Speech: clear, normal rate/rhythm/volume, spontaneous TP: goal oriented TC: on improved mood Mood: so-so Affect: congruent SI:denies HI:denies AH/VH: denies Delusions:none expressed; recent hx of paranoid delusions Insight/judgment:fair Memory/cog: alert, oriented x 3. MOCA completed on 12/21/2020 scored 19/30, most difficulty with visuo spatial, attention, language fluency and repetition. Recall (11/16), orientation (11/17, date off by one day, did not know name of hospital) Diagnostics Vital Signs (24Hr): Vital Signs - 24 hr 12/20/20 21:20 Temperature 97.7 F Pulse Rate 68 Respiratory Rate 16 Blood Pressure 116/66 Pulse Oximetry 97 Body Mass Index 34.3 Labs Results: 12/15/20 13:50 12/15/20 13:50 Imaging Radiology Impressions: ITS Impressions Head CT 12/15/20 18:30 IMPRESSION: 1. No acute intracranial pathology. 2. Mild sinus disease. Medications Medications Current Medications Generic Name Dose Route Start Last Admin Trade Name Freq PRN Reason Stop Dose Admin Acetaminophen 650 mg 12/16/20 10:09 Acetaminophen 325 Mg Tablet PO Q6H PRN Headache/Pain Mild Scale (1-3) Al Hydroxide/Mg Hydroxide 30 ml 12/16/20 10:09 Magnesium Hydrox/Alum Hydrox 30 Ml Oral.Susp PO Q6H PRN Heartburn/Nausea Folic Acid 1 mg 12/16/20 14:30 12/21/20 08:54 Folic Acid 1 Mg Tablet PO 1 mg DAILY PACO Administration Gabapentin 100 mg 12/16/20 21:00 12/21/20 08:54 Gabapentin 100 Mg Capsule PO 100 mg TID PACO Administration Hydroxyzine HCl 25 mg 12/16/20 10:09 12/21/20 01:40 Hydroxyzine Hcl 25 Mg Tablet PO 25 mg Q6H PRN Administration Anxiety Levothyroxine Sodium 175 mcg 12/16/20 09:00 12/21/20 08:54 Levothyroxine Sodium 175 Mcg Tablet PO 175 mcg DAILY PACO Administration Lorazepam 1 mg 12/16/20 14:22 Lorazepam 1 Mg Tablet PO Q4H PRN Alcohol Withdrawal Lorazepam 1 mg 12/21/20 21:00 Lorazepam 1 Mg Tablet PO BEDTIME PACO Magnesium Hydroxide 30 ml 12/16/20 10:09 Milk Of Magnesia 30 Ml Oral.Susp PO DAILY PRN Constipation Naltrexone HCl 25 mg 12/21/20 21:00 Naltrexone Hcl 50 Mg Tablet PO BEDTIME PACO Nicotine Polacrilex 2 mg 12/17/20 12:07 Nicotine Polacrilex 2 Mg Gum BUCCAL Q2H PRN Nicotine Cravings Risperidone 0.5 mg 12/19/20 09:00 12/21/20 08:54 Risperidone 0.5 Mg Tablet PO 0.5 mg DAILY PACO Administration Risperidone 2 mg 12/21/20 21:00 Risperidone 2 Mg Tablet PO BEDTIME PACO Thiamine HCl 200 mg 12/16/20 14:30 12/21/20 08:54 Thiamine Hcl 100 Mg Tablet PO 200 mg DAILY PACO Administration Trazodone HCl 50 mg 12/15/20 21:00 12/20/20 21:54 Trazodone Hcl 50 Mg Tablet PO 50 mg BEDTIME PACO Administration Trazodone HCl 50 mg 12/16/20 10:09 12/21/20 01:40 Trazodone Hcl 50 Mg Tablet PO 50 mg BEDTIME PRN Administration Insomnia Allergies Allergies Allergy/AdvReac Type Severity Reaction Status Date / Time metoclopramide AdvReac Unknown BRADYCARDIA Unverified 12/15/20 12:37 morphine AdvReac Unknown SEIZURE Unverified 12/15/20 12:37 Assessment & Plan Assessment & Plan (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 STart naltrexone 25mg po qhs for alcohol cravings. 2. Continue Gabapentin 100mg po TID 3. continue risperidone 0.5mg po daily and 1mg po qhs. 4. continue folic acid 1mg po daily and thiamine 200mg po daily (2) Alcohol dependence: Status: Acute Code(s): F10.20 - Alcohol dependence, uncomplicated Assessment and Plan: encourage referrals for substance use treatment consider MAT- either naltrexon, campral or disulfiram Greater than 50% of the session was spent on counseling and/or coordination of care Reason for contiued inpatient stay Substantial Risk for: inability to function
[2020-12-21 18:00] VITALS: BP 114/66; PULSE 74; RESP 16; TEMP 35.7; O2SAT 97
[2020-12-21] MEDS: Naltrexone HCl 50 MG TABLET 25 MG PO (21:31)
[2020-12-21] MEDS: risperiDONE 2 MG TABLET PO (21:32)
[2020-12-21] MEDS: LORazepam 1 MG TABLET PO (21:33)
[2020-12-22 06:35] VITALS: BP 109/54; PULSE 64; RESP 16; TEMP 36.4; O2SAT 95
[2020-12-22] MEDS: Levothyroxine Sodium 175 MCG TABLET PO (08:43)
[2020-12-22] MEDS: Thiamine HCL 100 MG TABLET 200 MG PO (08:43)
[2020-12-22] MEDS: Folic Acid 1 MG TABLET PO (08:43)
[2020-12-22] MEDS: Gabapentin 100 MG CAPSULE PO ×3 (08:43→21:54)
[2020-12-22] MEDS: risperiDONE 0.5 MG TABLET PO (08:43)
--- NOTE | 2020-12-22 15:02 | HO.PSYCHPN ---
Subjective Subjective Date of Service: 12/22/20 Reason For Visit: SI Interim History: Pt presents as calmer and less irritable today. She reports her mood is better in that she is not as anxious and overwhelmed. She reports less AH. She continues with some residual paranoid delusions and ideas of reference related to her neighbors but with less intensity. She has been visible in the unit. No behavioral concerns. She denied SI/HI. She started naltrexon last night no side effects reported. Review of Systems Review of Systems Constitutional: No Fever, No Chills ENT/Mouth: No sore throat, No Rhinorrhea, No Swallowing Difficulty Cardiovascular: No Chest Pain, No SOB, No Orthopnea, No Edema Respiratory: No Cough, No Sputum, No Wheezing, No dyspnea Gastrointestinal: No Nausea, No Vomiting, No Diarrhea, No abdominal Pain Genitourinary: No Dysuria, No Urinary Frequency, No Hematuria Musculoskeletal: No joint pain, No Myalgias Skin: No Skin Lesions, No rash Neuro: No Weakness, No Numbness, No Dizziness, No Headache Psych: + Anxiety/Panic, + Depression, +SI, no HI, no AH/VH Heme/Lymph: No Bruising, No Lymphadenopathy Endocrine: No Polyuria, No Polydipsia Cardiovascular: Denies cool extremities, Denies chest pain, Denies chest pain with activity, Denies diaphoresis, Denies dyspnea and Denies dyspnea on exertion Respiratory: Denies hemoptysis, Denies pain with cough, Denies dyspnea and Denies dyspnea on exertion Gastrointestinal: Denies constipation, Denies fecal incontinence and Denies diarrhea Mental Status Exam Mental Status Exam Narrative: Appearance: short stature, t-shirt, disheveled Behavior: cooperative Psychomotor: no agitation or retardation noted Speech: clear, normal rate/rhythm/volume, spontaneous TP: goal oriented TC: on improved mood Mood: so-so Affect: congruent SI:denies HI:denies AH/VH: denies Delusions:none expressed; recent hx of paranoid delusions Insight/judgment:fair Memory/cog: alert, oriented x 3. MOCA completed on 12/21/2020 scored 19/30, most difficulty with visuo spatial, attention, language fluency and repetition. Recall (11/16), orientation (11/17, date off by one day, did not know name of hospital) Diagnostics Vital Signs (24Hr): Vital Signs - 24 hr 12/21/20 18:00 12/22/20 06:35 Temperature 96.3 F L 97.5 F Pulse Rate 74 64 Respiratory Rate 16 16 Blood Pressure 114/66 109/54 L Pulse Oximetry 97 95 Body Mass Index 34.3 Labs Results: 12/15/20 13:50 12/15/20 13:50 Imaging Radiology Impressions: ITS Impressions Head CT 12/15/20 18:30 IMPRESSION: 1. No acute intracranial pathology. 2. Mild sinus disease. Medications Medications Current Medications Generic Name Dose Route Start Last Admin Trade Name Freq PRN Reason Stop Dose Admin Acetaminophen 650 mg 12/16/20 10:09 Acetaminophen 325 Mg Tablet PO Q6H PRN Headache/Pain Mild Scale (1-3) Al Hydroxide/Mg Hydroxide 30 ml 12/16/20 10:09 Magnesium Hydrox/Alum Hydrox 30 Ml Oral.Susp PO Q6H PRN Heartburn/Nausea Folic Acid 1 mg 12/16/20 14:30 12/22/20 08:43 Folic Acid 1 Mg Tablet PO 1 mg DAILY PACO Administration Gabapentin 100 mg 12/16/20 21:00 12/22/20 14:51 Gabapentin 100 Mg Capsule PO 100 mg TID PACO Administration Hydroxyzine HCl 25 mg 12/16/20 10:09 12/21/20 21:33 Hydroxyzine Hcl 25 Mg Tablet PO 25 mg Q6H PRN Administration Anxiety Levothyroxine Sodium 175 mcg 12/16/20 09:00 12/22/20 08:43 Levothyroxine Sodium 175 Mcg Tablet PO 175 mcg DAILY PAOC Administration Lorazepam 1 mg 12/16/20 14:22 Lorazepam 1 Mg Tablet PO Q4H PRN Alcohol Withdrawal Lorazepam 1 mg 12/21/20 21:00 12/21/20 21:33 Lorazepam 1 Mg Tablet PO 1 mg BEDTIME PACO Administration Magnesium Hydroxide 30 ml 12/16/20 10:09 Milk Of Magnesia 30 Ml Oral.Susp PO DAILY PRN Constipation Naltrexone HCl 25 mg 12/21/20 21:00 12/21/20 21:31 Naltrexone Hcl 50 Mg Tablet PO 25 mg BEDTIME PACO Administration Nicotine Polacrilex 2 mg 12/17/20 12:07 Nicotine Polacrilex 2 Mg Gum BUCCAL Q2H PRN Nicotine Cravings Risperidone 0.5 mg 12/19/20 09:00 12/22/20 08:43 Risperidone 0.5 Mg Tablet PO 0.5 mg DAILY PACO Administration Risperidone 2 mg 12/21/20 21:00 12/21/20 21:32 Risperidone 2 Mg Tablet PO 2 mg BEDTIME PACO Administration Thiamine HCl 200 mg 12/16/20 14:30 12/22/20 08:43 Thiamine Hcl 100 Mg Tablet PO 200 mg DAILY PACO Administration Trazodone HCl 50 mg 12/15/20 21:00 12/21/20 21:31 Trazodone Hcl 50 Mg Tablet PO 50 mg BEDTIME PACO Administration Trazodone HCl 50 mg 12/16/20 10:09 12/21/20 01:40 Trazodone Hcl 50 Mg Tablet PO 50 mg BEDTIME PRN Administration Insomnia Allergies Allergies Allergy/AdvReac Type Severity Reaction Status Date / Time metoclopramide AdvReac Unknown BRADYCARDIA Unverified 12/15/20 12:37 morphine AdvReac Unknown SEIZURE Unverified 12/15/20 12:37 Assessment & Plan Assessment & Plan (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 increase naltrexone 50mg po qhs for alcohol cravings. 2. Continue Gabapentin 100mg po TID 3. continue risperidone 0.5mg po daily and 1mg po qhs. 4. continue folic acid 1mg po daily and thiamine 200mg po daily (2) Alcohol dependence: Status: Acute Code(s): F10.20 - Alcohol dependence, uncomplicated Assessment and Plan: encourage referrals for substance use treatment consider MAT- either naltrexon, campral or disulfiram Greater than 50% of the session was spent on counseling and/or coordination of care Reason for contiued inpatient stay Substantial Risk for: inability to function
[2020-12-22 18:00] VITALS: BP 122/63; PULSE 70; TEMP 35.8
[2020-12-22] MEDS: Naltrexone HCl 50 MG TABLET PO (21:52)
[2020-12-22] MEDS: traZODone HCL 25 MG HALFTAB 75 MG PO (21:53)
[2020-12-22] MEDS: LORazepam 0.5 MG TABLET PO (21:53)
[2020-12-22] MEDS: risperiDONE 2 MG TABLET PO (21:54)
[2020-12-23 06:00] VITALS: BP 105/55; PULSE 64; RESP 18; TEMP 36.8; O2SAT 97
[2020-12-23] MEDS: Levothyroxine Sodium 175 MCG TABLET PO (09:00)
[2020-12-23] MEDS: Gabapentin 100 MG CAPSULE PO (09:00)
[2020-12-23] MEDS: Folic Acid 1 MG TABLET PO (09:00)
[2020-12-23] MEDS: risperiDONE 0.5 MG TABLET PO (09:00)
[2020-12-23] MEDS: Thiamine HCL 100 MG TABLET 200 MG PO (09:00)
--- NOTE | 2020-12-23 11:07 | P.DS_ITS ---
DS: Providers Provider Date of Service: 12/23/20 Date of admission: 12/16/20 10:10 Primary care physician: Delia Baltazar MD DS: Diagnosis Discharge Diagnosis (1) Alcohol dependence: Status: Acute (2) MDD (major depressive disorder), recurrent, severe, with psychosis: Status: Acute DS: Medications Discharge Medications Home Medications: Home Medications Medication Instructions Recorded Confirmed levothyroxine 1 tab PO DAILY 12/15/20 12/15/20 Previous Rx's Medication Instructions Recorded folic acid 1 mg PO DAILY #30 tab 12/23/20 gabapentin 100 mg PO TID #90 cap 12/23/20 naltrexone 50 mg PO BEDTIME #30 tab 12/23/20 nicotine (polacrilex) 2 mg BUCCAL Q2H PRN 30 Days #30 ea 12/23/20 risperidone 2 mg PO BEDTIME #30 tab 12/23/20 thiamine mononitrate (vit B1) 200 mg PO DAILY #30 tab 12/23/20 trazodone 50 mg PO BEDTIME 30 Days #30 tab 12/23/20 Discharge Plan Discharge Patient Disposition: Home, Self-Care Discharge Diagnosis: MDD with psychosis Alcohol Use Disorder Referrals: Dr. Gopi Zacarias, [facility] [Other] - 01/06/21 4:00 pm CLAUDINE ZAMAN, THERAPIST [Other] - 12/29/20 2:00 pm (JAMEELDelia Burk MD [Primary Care Provider] - 12/31/20 1:30 pm (in office) Discharge Medications: New nicotine (polacrilex) 2 mg Gum 2 mg buccal Q2H PRN (Reason: Nicotine Cravings) 30 Days Qty: 30 RF: 0 gabapentin 100 mg Capsule 100 mg PO TID Qty: 90 RF: 0 naltrexone 50 mg Tablet 50 mg PO BEDTIME Qty: 30 RF: 0 risperidone 2 mg Tablet 2 mg PO BEDTIME Qty: 30 RF: 0 folic acid 1 mg Tablet 1 mg PO DAILY Qty: 30 RF: 0 thiamine mononitrate (vit B1) 100 mg Tablet 200 mg PO DAILY Qty: 30 RF: 0 Continued levothyroxine 175 mcg tablet 1 tab PO DAILY RF: 0 Changed trazodone 50 mg tablet 50 mg PO BEDTIME 30 Days Qty: 30 RF: 0 Discharge Orders: Discharge Order (Routine); Ordered 12/23/20 Ordered By: Janette Greco Diet: regular diet Activity on Discharge: As tolerated Stand Alone Forms: Patient Portal Discharge page Care Plan Goals: 1. Work on decreasing alcohol use 2. Take medications as prescribed 3. Follow up with referrals Health Concerns: 1. Follow up with PCP- TSH elevated on admission. Continue taking Levothyroxine in AM on empty stomach Plan of Treatment: 1. Go to nearest ED or call 911 in event of emergency Assessment: Joyce presents with less paranoid delusions, less AH, improved sleep/appetite. No SI/HI. Mental Status Exam Mental Status Exam Narrative: Appearance: short stature, t-shirt, improved hygiene, in NAD Behavior: cooperative, calm Psychomotor: no agitation or retardation noted Speech: clear, normal rate/rhythm/volume, spontaneous TP: goal oriented, linear TC: some residual paranoia towards neighbors but looking forward to continue OP treatment and go back home Mood: good Affect: congruent, brighter, non labile SI:denies HI:denies AH/VH: denies Delusions:residual towards neighbors Insight/judgment:fair Memory/cog: alert, oriented x 3. MOCA completed on 12/21/2020 scored 19/30, most difficulty with visuo spatial, attention, language fluency and repetition. Recall (11/16), orientation (11/17, date off by one day, did not know name of hospital) Data Data Completed and Pending Completed studies during hospitalization [Text1]: 12/17/20 12/17/20 12/17/20 08:05 08:05 08:05 Estimat Average Glucose 108 Hemoglobin A1c % 5.4 Triglycerides 82 Cholesterol 234 LDL Cholesterol, Calc 120 HDL Cholesterol 98 Vitamin B12 290 Folate 18.4 Imaging Diagnostic Imaging Impressions Head CT 12/15/20 18:30 IMPRESSION: 1. No acute intracranial pathology. 2. Mild sinus disease. DS: Summary Hospital Course Hospital Course: Ms. Barboza is a 60 year-old woman with hx of alcohol use who self presented to [facility] reporting increased VH/AH of demons and voices threatening her. She also presented with paranoid delusions of neighbors trying to go after her, bothering her by making her hear voices (of people she couldn't see) and being able to see her TV through her eyes. She endorsed feeling very tortured and overwhelmed by psychosis and paranoia. She endorse CAH telling her to either jump off balcony or cut her wrist. She also reports drinking 5-6 beers with few shots of vodka or rum for more than 10 years. She endorse passive suicidal ideation but denied any plan or intent. She denied HI. In the ED, her BAL was 10. She reports her sleep and appetite are poor. She reports she has been hearing voices for about one year, although her DATA COMMUNICATIONS ENGINEER and friend of 15 years states that voices and paranoia are much more recent. DATA COMMUNICATIONS ENGINEER does report, as pt also did, that pt drinks daily for past 10 years. Past Psychiatric History: Inpatient: none OP: none Suicide attempts: none Past medication trials: none Medical Evaluation Reviewed: Yes HOSPITAL COURSE Ms. Ferguson was admitted on a CV and placed on 15 minutes checks for safety. She initially presented as irritable, restless, tormented by CAH telling her to cut her wrist or jump off her balcony. She also reported paranoid delusions of neighbors sending her messages through these voices and monitoring her. She believed that through an sophia, her neighbors were able to control her and monitor her. She also reported feeling pins and needles sensation throughout her body, which she assumed were her neighbors doing doovoo. This is her first inpatient psychiatric admission. Per her friend and DATA COMMUNICATIONS ENGINEER, who knows Joyce for the past 15 years, reports this may be first time when pt present as psychotic and paranoid. After discussing risks, benefits and alternative treatment options, Ms. Ferguson was started on CIWA protocol of alcohol withdrawal. She was also started on Gabapentin, thiamine and folic acid. She was started on risperidone for ps ychosis. Her affect gradually brighten. She presented as less irritable, less suspicious and tormented by psychosis and delusions. It is likely that psychosis is mainly related to alcohol use. Her sleep and appetite improved. She denied SI/HI. She did not show any signs of aggression towards self or others. She was increasingly more visible in the unit and social with select peers. She was seen smiling and socializing appropriately with peers. There were no incidences of disruptive behaviors nor use of restraints. There were no further complication as pt continued alcohol withdrawal protocol. Pt agreed to start naltrexon to decrease alcohol cravings, which she tolerated well. At time of discharge, her friend/DATA COMMUNICATIONS ENGINEER denied any safety concerns and agreed that Joyce was in much improved condition. To assess underlying cognitive impairments related to roasterman alcohol use, MOCA completed on 12/21/2020; scored 19/30, most difficulty with visuo spatial, attention, language fluency and repetition. Recall (11/16), orientation (11/17, date off by one day, did not know name of hospital) Time spent discussing smoking cessation with patient: more than 10 minutes Status at Discharge Cognitive/behavioral status at discharge: Pt with less AH, some residual paranoia towards neighbors. No SI/HI. Affect is bright, non labile. Pt is future oriented. No signs of aggression towards self or others. Functional status at discharge: independent ambulation Overall status at discharge: patient is progressing back to baseline Time Spent with Patient Time attestation: Total time spent providing and/or coordinating discharge services:
--- NOTE | 2020-12-23 11:32 | PC.NURSE ---
PT IS AWARE AND READY FOR DISCHARGE. PT HAS BEEN IN BEHAVIORAL CONTROL. SHE HAS BEEN VISIBLE ON THE UNIT AND SOCIAL WITH PEERS. PT IS ALERT AND ORIENTED X4. SHE IS FUTURE ORIENTED. PT HAS BEEN ATTENDING GROUPS AND PARTICIPATED. PT HAS BEEN EATING AND SLEEPING WELL. SHE HAS BEEN INDEPENDENTLY TAKING CARE OF HER ADLS SUCH BATHING AND CHANGING HER CLOTHING. PT DENIES ANY AUDITORY OR VISUAL HALLUCINATIONS. SHE DENIES ANXIETY OR DEPRESSION. PT STATED THAT SHE IS FEELING MUCH BETTER THAN WHEN SHE GOT HERE . PT DENIES ANY URGES TO HARM HERSELF OR OTHERS. SHE IS NOT HAVING ANY CRAVINGS FOR ALCOHOL AT THIS MOMENT. PT HAS BEEN COMPLIANT WITH HER MEDICATIONS. 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 SHE HAS BEEN ENGAGED IN HER OWN CARE AND ADVOCATING FOR HER NEEDS. PTS PAPERWORK WILL BE FAXED TO HER PROVIDERS PER PROTOCOL. HER APPOINMENTS HAVE BEEN SCHEDULED.
== END 2020-12-23 13:35 | disposition home or self-care (01) | DRG 897 ==
LOC: HO.ED 13:01 → HO.PM5 12-16 10:17
PROVIDERS: Emergency Medicine; Physician Assistant; Admitting Provider Psychiatry & Neurology Psychiatry; Emergency Provider Emergency Medicine; PCP Internal Medicine; Visit Provider Social Worker
DX: F10.251 Alcohol dependence with alcohol-induced psychotic disorder with hallucinations (principal); F17.210 Nicotine dependence, cigarettes, uncomplicated; Z71.6 Tobacco abuse counseling; E03.9 Hypothyroidism, unspecified; Z88.5 Allergy status to narcotic agent; Z20.822 Contact with and (suspected) exposure to COVID-19; Z79.890 Hormone replacement therapy; Z79.899 Other long term (current) drug therapy
CPT/HCPCS: 36415; 70450; 80048; 80061; 80076; 80320; 82607; 82746; 83036; 83735; 84439; 84443; 84484; 85025; 87635; 93005; 99285

== ENCOUNTER 2021-05-20 15:31 | Emergency (ER) | payer OTHER, SELFPAY ==
--- NOTE | ~2021-05-20 | XR_ITS ---
EXAMINATION: XR KNEE, LEFT CLINICAL INFORMATION: Fall. COMPARISON: Radiograph of the left knee dated from 11/15/2007. TECHNIQUE: Four views of the left knee. FINDINGS: No evidence of acute fractures or malalignment. There is a well-corticated bony fragment off the medial surface of the tibial plateau, likely related with an old injury. There is mild medial compartmental joint space narrowing. No erosions. There is a small joint effusion. No unexpected radiopaque foreign bodies. XR/XR knee LT 3V IMPRESSION: No acute fractures or malalignment. Mild osteoarthritis of the medial compartment. Well-corticated bony fragment off the medial tibial plateau likely related with an old injury. Small joint effusion.
--- NOTE | ~2021-05-20 | XR_ITS ---
EXAMINATION: XR HIP, LEFT CLINICAL INFORMATION: Fall. COMPARISON: Radiograph of the left hip dated from 06/02/2018. TECHNIQUE: Two views of the left hip. FINDINGS: No acute fractures or malalignment. Developmental deformity of the left femoral head with shallow acetabula, as described on prior studies. Partially visualized total right hip arthroplasty without evidence of hardware complications. Secondary ossification adjacent to the right greater trochanter. Surgical clip in the right upper abdomen. Pelvic phleboliths. XR/XR hip LT w PEL1V IMPRESSION: No acute fractures or malalignment. Visualized portions of a total right hip arthroplasty are intact. However, the distal aspect of the femoral stem is out of the [id number]. Developmental deformity of the left femoral head.
[2021-05-20 16:10] VITALS: BP 167/85; BP 188/92; PULSE 57; PULSE 60; RESP 16; TEMP 36.8; O2SAT 98; O2SAT 99; BMI 24.2
--- NOTE | 2021-05-20 17:28 | ED_ITS ---
HPI - Extremity Injury (Lower) General Chief Complaint: Extremity Injury, Lower <OSIEL Harris - Last Filed: 05/20/21 18:16> Stated Complaint: fall <OSIEL Harris - Last Filed: 05/20/21 18:16> Time Seen by Provider: 05/20/21 16:54 <OSIEL Harris - Last Filed: 05/20/21 18:16> Source: patient and EMS <OSIEL Harris - Last Filed: 05/20/21 18:16> Mode of arrival: EMS <OSIEL Harris - Last Filed: 05/20/21 18:16> History of Present Illness HPI Narrative: 60-year-old female with past medical history of alcohol dependence, arthritis, hypothyroid, right hip replacement, to the ED complaining of left knee pain radiating to left groin s/p slip and fall in water at [facility]. Denies symptoms prior to fall including CP/SOB, lightheadedness/dizziness. Denies head trauma/LOC, neck/back pain, abdominal pain <OSIEL Harris - Last Filed: 05/20/21 18:16> MD complaint: knee injury <OSIEL Harris Last Filed: 05/20/21 18:16> Related Data Home Medications: Home Medications Medication Instructions Recorded Confirmed levothyroxine 175 mcg tablet 1 tab PO DAILY 12/15/20 12/15/20 Previous Rx's Medication Instructions Recorded folic acid 1 mg tablet 1 mg PO DAILY #30 tab 12/23/20 gabapentin 100 mg capsule 100 mg PO TID #90 cap 12/23/20 naltrexone 50 mg tablet 50 mg PO BEDTIME #30 tab 12/23/20 nicotine (polacrilex) 2 mg gum 2 mg BUCCAL Q2H PRN 30 Days #30 ea 12/23/20 risperidone 2 mg tablet 2 mg PO BEDTIME #30 tab 12/23/20 thiamine mononitrate (vit B1) 100 200 mg PO DAILY #30 tab 12/23/20 mg tablet trazodone 50 mg tablet 50 mg PO BEDTIME 30 Days #30 tab 12/23/20 acetaminophen 500 mg tablet 500 mg PO Q6H PRN #20 tab 05/20/21 (Tylenol Extra Strength) lidocaine 5 % topical patch 1 patch TOPICAL DAILY PRN #30 ea 05/20/21 (Lidoderm) MDD remove after 12 hours naproxen 500 mg tablet 500 mg PO BID PRN 10 Days #20 tab 05/20/21 <OSIEL Harris - Last Filed: 05/20/21 18:16> Allergies/Adverse Reactions: Allergies Allergy/AdvReac Type Severity Reaction Status Date / Time metoclopramide AdvReac Unknown BRADYCARDIA Unverified 12/15/20 12:37 morphine AdvReac Unknown SEIZURE Unverified 12/15/20 12:37 <OSIEL Harris - Last Filed: 05/20/21 18:16> Review of Systems Review of Systems: Constitutional: No Fever, No Chills ENT/Mouth: No Ear Pain, No Nasal Congestion, No sore throat, No Rhinorrhea Cardiovascular: No Chest Pain, No SOB Respiratory: No Cough, No Wheezing Gastrointestinal: No Nausea, No Vomiting, No Diarrhea, No Constipation, No Abdominal pain Genitourinary: No Dysuria, No Hematuria, No Flank Pain Musculoskeletal: +oint pain, No Myalgias, No Joint Swelling Skin: No Skin Lesions, No rash Neuro: No Weakness, No Numbness, No Paresthesias, no head trauma, no LOC <OSIEL Harris - Last Filed: 05/20/21 18:16> Yes all other systems are reviewed and are negative <OSIEL Harris - Last Filed: 05/20/21 18:16> [facility] Past Medical History Attestation statement: The following information was validated with the patient. <OSIEL Harris - Last Filed: 05/20/21 18:16> Medical History: Medical History (Updated 05/20/21 @ 18:07 by OSIEL Harris) Alcohol dependence Arthritis Hypothyroidism <OSIEL Harris - Last Filed: 05/20/21 18:16> Surgical History: Surgical History (Updated 05/20/21 @ 16:12 by Ally Barry) History of right hip replacement <OSIEL Harris - Last Filed: 05/20/21 18:16> Social History Social History: Social History Household Members: Unknown / Unable to assess Do you presently have visiting nurse or other home services: No Cigarette Packs Per Day: 1 Cigarettes Per Day: 20 Second Hand Smoke Exposure: No Substance Use Type: Marijuana Advance Directives: No Advance Directives Information Provided: No Patient : No service: No Sexual orientation: Did not discuss <OSIEL Harris - Last Filed: 05/20/21 18:16> Physical Exam Vital Signs: Vital Signs: Last Vital Signs Temp 98.4 F 05/20/21 17:48 Pulse 52 05/20/21 17:48 Resp 18 05/20/21 17:48 BP 157/70 H 05/20/21 17:48 Pulse Ox 97 05/20/21 17:48 Body Mass Index 24.2 <OSIEL Harris - Last Filed: 05/20/21 18:16> Vital Signs: Last Vital Signs Temp 98.4 F 05/20/21 17:48 Pulse 52 05/20/21 17:48 Resp 18 05/20/21 17:48 BP 157/70 H 05/20/21 17:48 Pulse Ox 97 05/20/21 17:48 Body Mass Index 24.2 <AILYN PrajapatiP- - Last Filed: 05/20/21 18:26> Const: General: cooperative, healthy appearing and no acute distress <OSIEL Harris - Last Filed: 05/20/21 18:16> Orientation/consciousness: patient oriented x3 <OSIEL Harris - Last Filed: 05/20/21 18:16> Limitations: no limitations <OSIEL Harris - Last Filed: 05/20/21 18:16> HENMT: Head: Yes normal to inspection <OSIEL Harris - Last Filed: 05/20/21 18:16> Ears: hearing grossly normal bilaterally <OSIEL Harris - Last Filed: 05/20/21 18:16> General nose exam: Normal external nose present <OSIEL Harris - Last Filed: 05/20/21 18:16> Face and sinus: Yes normal facial exam <OSILE Harris - Last Filed: 05/20/21 18:16> Eyes: General: appearance normal, both eyes and all related structures <OSIEL Harris - Last Filed: 05/20/21 18:16> EOM: EOMs intact bilaterally <OSIEL Harris - Last Filed: 05/20/21 18:16> Neck: Other: No midline cervical spinous tenderness <Keira Pathak CA - Last Filed: 05/20/21 18:16> Neck: Yes normal visual inspection <Keira Pathak CA - Last Filed: 05/20/21 18:16> Resp: Effort & Inspection: normal respiratory effort and not labored <Keira Pathak CA - Last Filed: 05/20/21 18:16> Cardio: Rate: regular rate <Keira Pathak CA - Last Filed: 05/20/21 18:16> Peripheral pulses: dorsalis pedis present <Keira Pathak CA - Last Filed: 05/20/21 18:16> GI: Inspection: Yes normal to inspection <Keira Pathak CA - Last Filed: 05/20/21 18:16> Palpation (GI): Soft to palpation, nontender, no guarding and not rigid <Keira Pathak CA - Last Filed: 05/20/21 18:16> Back/Spine/Pelvis: Other: No midline thoracic/lumbar spinous tenderness/step- off or deformity <Keira Pathak CA - Last Filed: 05/20/21 18:16> Skin: Rashes: no rashes <Keira Pathak CA - Last Filed: 05/20/21 18:16> Wounds: no wounds <Keira Pathak CA - Last Filed: 05/20/21 18:16> Neuro: General: patient oriented x3 <OSIEL Harris - Last Filed: 05/20/21 18:16> Gait exam (Neuro): Normal gait present <Keira Pathak CA - Last Filed: 05/20/21 18:16> Extrem: Other: Left knee with tenderness to palpation. No appreciable deformity. Passive range of motion intact. Decreased flexion secondary to pain. Internal groin MSK tenderness to palpation. Hip ROM intact. Neurovascular intact distally. <OSIEL Harris - Last Filed: 05/20/21 18:16> Course Course Course Narrative: -1809--ED care transfer to [facility] pending x-ray results and anticipated DC home <OSIEL Harris - Last Filed: 05/20/21 18:16> Reevaluation(s) Reevaluation #1: X-rays negative for acute fracture will be sending patient home <YINA Prajapati - Last Filed: 05/20/21 18:26> MDM - Extremity Injury (Lower) MDM Narrative Medical decision making narrative: 60-year-old female with past medical history of alcohol dependence, arthritis, hypothyroid, right hip replacement, to the ED complaining of left knee pain radiating to left groin s/p slip and fall in [facility] at [facility] PHYSICAL THERAPIST ASSISTANT. On exam VSS, NAD/well-appearing, physical exam as above. Concern for MSK pain, tendon/ligamental or meniscal injury. Will rule out fracture. Low concern for dislocation. C-collar cleared and removed Plan: X-rays <SOIEL Harris - Last Filed: 05/20/21 18:16> Medical Records Attestation: I reviewed the patient's medical records. <OSIEL Harris - Last Filed: 05/20/21 18:16> Lab Data Attestation: I reviewed the patient's lab results. <OSIEL Harris - Last Filed: 05/20/21 18:16> Imaging Data Left hip x-ray: Attestation: I personally reviewed and interpreted this imaging study as follows: <YINA Prajapati - Last Filed: 05/20/21 18:26> Radiologist's impression: FINDINGS: No acute fractures or malalignment. Developmental deformity of the left femoral head with shallow acetabula, as described on prior studies. Partially visualized total right hip arthroplasty without evidence of hardware complications. Secondary ossification adjacent to the right greater trochanter. Surgical clip in the right upper abdomen. Pelvic phleboliths. <YINA Prajapati - Last Filed: 05/20/21 18:26> Left knee x-ray: Attestation: I personally reviewed and interpreted this imaging study as follows: <YINA Prajapati - Last Filed: 05/20/21 18:26> Radiologist's impression: FINDINGS: No evidence of acute fractures or malalignment. There is a well-corticated bony fragment off the medial surface of the tibial plateau, likely related with an old injury. There is mild medial compartmental joint space narrowing. No erosions. There is a small joint effusion. No unexpected radiopaque foreign bodies.? <Caroline Patinoo, OVERNIGHT STOCKER-BC - Last Filed: 05/20/21 18:26> Discharge Plan Discharge Clinical Impression: Acute knee pain Qualifiers: Laterality: left Qualified Code(s): M25.562 - Pain in left knee <OSIEL Harris - Last Filed: 05/20/21 18:16> Instructions: Knee Pain (ED) <OSIEL Harris - Last Filed: 05/20/21 18:16> Additional Instructions: Your x-rays are unremarkable It is important for you to follow-up with your primary care doctor as well as Orthopedics as needed, you will likely need an MRI of her knee Wear Jacob wrap as needed at home for stability/compression Ice and elevate your leg Naproxen as an anti-inflammatory / pain medication, take with food Lidoderm patches are numbing patches, apply to painful area In addition take Tylenol at home If symptoms persist or worsen, pain becomes unbearable, weakness return to the ED Tus radiograf?as no tienen nada especial Es importante que realice un seguimiento con cantrell m?dico de atenci?n primaria y ta mbi?n con el ortopedista seg?n sea necesario, es probable que necesite junior resonancia magn?mor de cantrell rodilla. Use junior envoltura Jacob seg?n sea necesario en casa para mayor estabilidad / compresi?n Hielo y eleva tu pierna Naproxeno peter medicamento antiinflamatorio / analg?sico, sobia con alimentos. Los parches de Lidoderm son parches que adormecen, se aplican al ?dima dolorida Adem?s, tome Tylenol en casa. Si los s?ntomas persisten o empeoran, el dolor se vuelve insoportable, la debilidad vuelve al servicio de urgencias <OSIEL Harris - Last Filed: 05/20/21 18:16> Prescriptions: New acetaminophen [Tylenol Extra Strength] 500 mg tablet 500 mg PO Q6H PRN (Reason: pain or fever) Qty: 20 RF: 0 lidocaine [Lidoderm] 5 % adhesive patch,medicated 1 patch topical DAILY MDD remove after 12 hours PRN (Reason: pain) Qty: 30 RF: 0 naproxen 500 mg tablet 500 mg PO BID PRN (Reason: pain) 10 Days Qty: 20 RF: 0 No Action levothyroxine 175 mcg tablet 1 tab PO DAILY RF: 0 nicotine (polacrilex) 2 mg Gum 2 mg buccal Q2H PRN (Reason: Nicotine Cravings) 30 Days Qty: 30 RF: 0 gabapentin 100 mg Capsule 100 mg PO TID Qty: 90 RF: 0 naltrexone 50 mg Tablet 50 mg PO BEDTIME Qty: 30 RF: 0 risperidone 2 mg Tablet 2 mg PO BEDTIME Qty: 30 RF: 0 folic acid 1 mg Tablet 1 mg PO DAILY Qty: 30 RF: 0 thiamine mononitrate (vit B1) 100 mg Tablet 200 mg PO DAILY Qty: 30 RF: 0 trazodone 50 mg tablet 50 mg PO BEDTIME 30 Days Qty: 30 RF: 0 <OSIEL Harris - Last Filed: 05/20/21 18:16> Referrals: Dorian Walker MD [Physician] - 1 week Physician,Unknown J [Primary Care Provider] - 2 days <OSIEL Harris - Last Filed: 05/20/21 18:16> Print Language: German <OSIEL Harris - Last Filed: 05/20/21 18:16>
[2021-05-20 17:48] VITALS: BP 157/70; PULSE 52; RESP 18; TEMP 36.9; O2SAT 97
== END 2021-05-20 18:56 | disposition home or self-care (01) ==
PROVIDERS: Emergency Provider Emergency Medicine
DX: M25.562 Pain in left knee (principal); F10.20 Alcohol dependence, uncomplicated; Z91.81 History of falling; Z96.641 Presence of right artificial hip joint
CPT/HCPCS: 73502; 73562; 99283; 99284

== ENCOUNTER 2022-08-30 14:26 | Observation (INO) | payer OTHER, SELFPAY ==
--- NOTE | ~2022-08-30 | XR_ITS ---
EXAMINATION: XR CHEST CLINICAL INFORMATION: Shortness of breath. COMPARISON: 02/14/2007 chest radiograph. TECHNIQUE: Frontal view of the chest was obtained. FINDINGS: No significant abnormality is noted involving the heart, lungs, mediastinum, bony thorax or soft tissues. XR/XR chest 1V IMPRESSION: No acute cardiopulmonary process.
[2022-08-30 14:35] VITALS: BP 106/46; BP 125/63; PULSE 60; PULSE 77; RESP 22; TEMP 36.8; O2SAT 100; O2SAT 95; BMI 28.7
--- NOTE | 2022-08-30 14:41 | PC.NURSE ---
patient a&ox3, speaking in short sentences, vss, configuration developer applied- nsr 70s
--- NOTE | 2022-08-30 14:49 | ECG_ITS ---
Test Reason : SOB Blood Pressure : / mmHG Vent. Rate : 072 BPM Atrial Rate : 072 BPM P-R Int : 162 ms QRS Dur : 086 ms QT Int : 394 ms P-R-T Axes : 048 024 005 degrees QTc Int : 431 ms Normal sinus rhythm Normal ECG When compared with ECG of 16-DEC-2020 04:16, No significant change was found Referred By: Amie Lala Electronically Signed By:RAO WEI MD
--- NOTE | 2022-08-30 14:53 | ED.SOB ---
HPI - SOB/Dyspnea General Chief Complaint: Dyspnea Stated Complaint: SOB,COUGH Time Seen by Provider: 08/30/22 14:30 History of Present Illness HPI Narrative: Patient is a 62-year-old female with a history of alcohol dependence, asthma presented today with having increasing coughing congestion upper respiratory symptoms. Went to Urgent Care. Sent to ED because she had hypoxia MD elicited complaint: shortness of breath, cough and asthma attack Pertinent past history: COPD Related Data Home Medications Medication Instructions Recorded Confirmed levothyroxine 175 mcg tablet 1 tab PO DAILY 12/15/20 12/15/20 Previous Rx's Medication Instructions Recorded folic acid 1 mg tablet 1 mg PO DAILY #30 tabs 12/23/20 gabapentin 100 mg capsule 100 mg PO TID #90 caps 12/23/20 naltrexone 50 mg tablet 50 mg PO BEDTIME #30 tabs 12/23/20 nicotine (polacrilex) 2 mg gum 2 mg buccal Q2H PRN Nicotine 12/23/20 Cravings 30 days #30 ea risperidone 2 mg tablet 2 mg PO BEDTIME #30 tabs 12/23/20 thiamine mononitrate (vit B1) 100 200 mg PO DAILY #30 tabs 12/23/20 mg tablet trazodone 50 mg tablet 50 mg PO BEDTIME 30 days #30 tabs 12/23/20 acetaminophen 500 mg tablet 500 mg PO Q6H PRN pain or fever 05/20/21 (Tylenol Extra Strength) #20 tabs lidocaine 5 % topical patch 1 patch topical DAILY PRN pain #30 05/20/21 (Lidoderm) ea naproxen 500 mg tablet 500 mg PO BID PRN pain 10 days #20 05/20/21 tabs Allergies Allergy/AdvReac Type Severity Reaction Status Date / Time metoclopramide AdvReac Unknown BRADYCARDIA Verified 08/30/22 14:34 morphine AdvReac Unknown SEIZURE Verified 08/30/22 14:34 Review of Systems Review of Systems: positive increasing coughing shortness of breath generalized malaise Yes all other systems are reviewed and are negative PMFSH Past Medical History Attestation statement: The following information was validated with the patient. Medical History Alcohol dependence Arthritis Hypothyroidism Surgical History History of right hip replacement Social History Social History Household Members: Unknown / Unable to assess Do you presently have visiting nurse or other home services: No Cigarette Packs Per Day: 1 Cigarettes Per Day: 20 Second Hand Smoke Exposure: No Substance Use Type: Marijuana Advance Directives: No Advance Directives Information Provided: No service: No Sexual orientation: Did not discuss Physical Exam Vital Signs: Vital Signs: Last Vital Signs Temp 98.3 F 08/30/22 16:40 Pulse 97 08/30/22 16:40 Resp 18 08/30/22 16:40 BP 108/49 L 08/30/22 16:40 Pulse Ox 92 08/30/22 16:40 O2 Del Method 08/30/22 16:40 BMI result Body Mass Index 28.7 Const: Other: Appearance: Alert. Oriented X3. No acute distress. Eyes: Pupils equal, round and reactive to light. ENT: Pharynx normal. Neck: Normal inspection. Neck supple. No lymph nodes noted. No crepitus CVS: Normal heart rate and rhythm. Pulses normal. Normal S1 and S2 Respiratory: positive increasing wheezing, diminished breath sounds bilaterally, increased work of breathing Abdomen: Soft and nontender. No rigidity. No distention. good BS x4 Skin: Skin warm and dry. Normal skin color. Normal skin turgor. Extremities: No lower extremity edema. Neurovascular intact to all extremities. No Lacerations. No Rash Neuro: Oriented X 3. No motor deficit. No sensory deficit. Moving all extermities. No slurred speech Medications Administered Generic Name Dose Route Start Last Admin Trade Name Freq PRN Reason Stop Dose Admin Magnesium Sulfate 2 gm in 50 mls @ 25 mls/hr 08/30/22 14:51 08/30/22 15:21 Magnesium Sulfate/H2o IV 08/30/22 16:50 25 mls/hr ONCE ONE Administration Discontinued Medications Generic Name Dose Route Start Last Admin Trade Name Freq PRN Reason Stop Dose Admin Albuterol Sulfate 5 mg/ 0 mg 08/30/22 14:49 08/30/22 15:07 Ipratropium [place] 0.5 mg INHALE 08/30/22 14:50 2.5 each ONCE ONE Administration Methylprednisolone Sodium Succinate 125 mg 08/30/22 14:49 08/30/22 15:21 Methylprednisolone Sod Succ 125 Mg/2 Ml Vial IVPUSH 08/30/22 14:50 125 mg ONCE ONE Administration Medical Decision Making Differential Diagnosis differential includes asthma/ COPD, congestive heart failure. , pneumonia. Labs ordered. Chest x-ray pending. Patient's chest x-ray she was interpreted by myself it shows no acute findings. No evidence for congestive heart failure. Patient's BNP was less than 10 consistent with no congestive heart failure. Patient's given neb treatments steroids, magnesium continuous neb treatment with only moderate relief. When she ambulates she gets extremely short of breath. patient is flu RSV COVID was positive for RSV. Possibly attributed to patient's increased shortness of breath. Will admit patient for further evaluation . Patient's lactate was 0.9. No evidence for severe sepsis. patient's case discussed with hospitalist team for admission. Admission/Observation Consideration of admission/observation: Escalation of care including admission/observation considered Given patient's hypoxia initially hospitalization was considered. Patient given continuous neb. Still having hypoxia on ambulation. Weaknesses. Wheezing. Will admit for further evaluation. Consult Healthcare Provider Management of the patient was discussed with: Hospitalist Lab Data [facility] Lab Attestation statement: I reviewed the patient's lab results. 08/30/22 15:38 08/30/22 15:38 Labs: Lab Results 08/30/22 08/30/22 08/30/22 Range/Units 15:38 15:38 15:38 WBC 6.5 (4.8-10.8) X10*3/uL RBC 4.10 L (4.20-5.50) X10*6/uL Hgb 11.9 L (12.0-16.0) g/dl Hct 34.9 L (37.0-47.0) % MCV 85.1 (80.0-98.0) fL MCH 29.0 (27.0-33.0) pg MCHC 34.1 (31.0-35.0) g/dl RDW 13.8 (11.0-16.0) % Plt Count 232 (160-400) X10*3/uL MPV 9.2 L (9.4-12.3) fL Immature Gran % (Auto) 0.5 H (0.0-0.4) % Neut % (Auto) 52.6 (45-73) % Lymph % (Auto) 30.5 (20-40) % [place] % (Auto) 13.3 H (2-11) % Eos % (Auto) 2.6 (0-4) % Baso % (Auto) 0.5 (0-2) % Lymph # (Auto) 2.0 (1.2-4.9) X10*3/uL [place] # (Auto) 0.9 (0.1-1.2) X10*3/uL Eos # (Auto) 0.2 (0.0-0.4) X10*3/uL Baso # (Auto) 0.0 (0.0-0.2) X10*3/uL Abs Immat Gran (auto) 0.03 (0.00-0.03) X10*3/uL Absolute Neuts (auto) 3.4 (2.0-8.3) x10*3/uL Absolute Nucleated RBC 0.000 (0.0-0.012) X10*3/uL Nucleated RBC % (auto) 0.0 (0.0-0.2) /100WBC Sodium 138 (135-145) mmol/L Potassium 3.8 (3.3-5.1) mmol/L Chloride 102 (96-108) mmol/L Carbon Dioxide 28 (22-29) mmol/L Anion Gap 12 (12-20) BUN 15 (9-16) mg/dL Creatinine 0.94 (0.5-1.4) mg/dL Estim Creat Clear Calc 51.3 Estimated GFR > 60 Random Glucose 121 H (60-115) mg/dL Lactic Acid 0.9 (0.5-2.0) mmol/L Calcium 9.1 (8.4-10.2) mg/dL Troponin I High Sens (<3.5-17.0) ng/L B-Natriuretic Peptide (<100) pg/mL Ethyl Alcohol mg/dL Influenza Type A (PCR) (Negative) Influenza Type B (PCR) (Negative) RSV RNA Qual (PCR) (Negative) SARS-CoV-2 RNA (RT-PCR) (Negative) 08/30/22 08/30/22 08/30/22 Range/Units 15:38 15:38 15:38 WBC (4.8-10.8) X10*3/uL RBC (4.20-5.50) X10*6/uL Hgb (12.0-16.0) g/dl Hct (37.0-47.0) % MCV (80.0-98.0) fL MCH (27.0-33.0) pg MCHC (31.0-35.0) g/dl RDW (11.0-16.0) % Plt Count (160-400) X10*3/uL MPV (9.4-12.3) fL Immature Gran % (Auto) (0.0-0.4) % Neut % (Auto) (45-73) % Lymph % (Auto) (20-40) % [place] % (Auto) (2-11) % Eos % (Auto) (0-4) % Baso % (Auto) (0-2) % Lymph # (Auto) (1.2-4.9) X10*3/uL [place] # (Auto) (0.1-1.2) X10*3/uL Eos # (Auto) (0.0-0.4) X10*3/uL Baso # (Auto) (0.0-0.2) X10*3/uL Abs Immat Gran (auto) (0.00-0.03) X10*3/uL Absolute Neuts (auto) (2.0-8.3) x10*3/uL Absolute Nucleated RBC (0.0-0.012) X10*3/uL Nucleated RBC % (auto) (0.0-0.2) /100WBC Sodium (135-145) mmol/L Potassium (3.3-5.1) mmol/L Chloride (96-108) mmol/L Carbon Dioxide (22-29) mmol/L Anion Gap (12-20) BUN (9-16) mg/dL Creatinine (0.5-1.4) mg/dL Estim Creat Clear Calc Estimated GFR Random Glucose (60-115) mg/dL Lactic Acid (0.5-2.0) mmol/L Calcium (8.4-10.2) mg/dL Troponin I High Sens < 3.5 (<3.5-17.0) ng/L B-Natriuretic Peptide < 10 (<100) pg/mL Ethyl Alcohol < 10 mg/dL Influenza Type A (PCR) (Negative) Influenza Type B (PCR) (Negative) RSV RNA Qual (PCR) (Negative) SARS-CoV-2 RNA (RT-PCR) (Negative) 08/30/22 Range/Units 15:40 WBC (4.8-10.8) X10*3/uL RBC (4.20-5.50) X10*6/uL Hgb (12.0-16.0) g/dl Hct (37.0-47.0) % MCV (80.0-98.0) fL MCH (27.0-33.0) pg MCHC (31.0-35.0) g/dl RDW (11.0-16.0) % Plt Count (160-400) X10*3/uL MPV (9.4-12.3) fL Immature Gran % (Auto) (0.0-0.4) % Neut % (Auto) (45-73) % Lymph % (Auto) (20-40) % [place] % (Auto) (2-11) % Eos % (Auto) (0-4) % Baso % (Auto) (0-2) % Lymph # (Auto) (1.2-4.9) X10*3/uL [place] # (Auto) (0.1-1.2) X10*3/uL Eos # (Auto) (0.0-0.4) X10*3/uL Baso # (Auto) (0.0-0.2) X10*3/uL Abs Immat Gran (auto) (0.00-0.03) X10*3/uL Absolute Neuts (auto) (2.0-8.3) x10*3/uL Absolute Nucleated RBC (0.0-0.012) X10*3/uL Nucleated RBC % (auto) (0.0-0.2) /100WBC Sodium (135-145) mmol/L Potassium (3.3-5.1) mmol/L Chloride (96-108) mmol/L Carbon Dioxide (22-29) mmol/L Anion Gap (12-20) BUN (9-16) mg/dL Creatinine (0.5-1.4) mg/dL Estim Creat Clear Calc Estimated GFR Random Glucose (60-115) mg/dL Lactic Acid (0.5-2.0) mmol/L Calcium (8.4-10.2) mg/dL Troponin I High Sens (<3.5-17.0) ng/L B-Natriuretic Peptide (<100) pg/mL Ethyl Alcohol mg/dL Influenza Type A (PCR) NEGATIVE (Negative) Influenza Type B (PCR) NEGATIVE (Negative) RSV RNA Qual (PCR) POSITIVE A (Negative) SARS-CoV-2 RNA (RT-PCR) NEGATIVE (Negative) Independent Interpretation I performed an independent interpretation of an: EKG Interpretation: My interpretation of patient's EKG showed a heart rate of 70 [place] QRS QT within normal limits there is nonspecific diffuse T-wave flattening noted Independent Historian Clinical information obtained from an independent historian. History obtained from or confirmed by: EMS External Record Review External record reviewed: Inpatient record Chronic Conditions Patient?s care impacted by: Other asthma Social Determinants Patient?s care significantly limited by Social Determinants of Health including: Problems related to primary support group Critical Care Time Critical Care Time Total Critical Care Time: 40 Attestation: I have personally provided 40 minutes of critical care time exclusive of time spent on separately billable procedures. Time includes review of lab data, radiology results, discussion with consultants, and monitoring for potential decompensation. Interventions were performed as documented above Discharge Plan Discharge Clinical Impression: Asthma with exacerbation, Respiratory syncytial virus (RSV) infection Patient Disposition: Admitted As Inpatient Prescriptions: No Action levothyroxine 175 mcg tablet 1 tab PO DAILY nicotine (polacrilex) 2 mg Gum 2 mg buccal Q2H PRN (Reason: Nicotine Cravings) 30 Days Qty: 30 0RF gabapentin 100 mg Capsule 100 mg PO TID Qty: 90 0RF naltrexone 50 mg Tablet 50 mg PO BEDTIME Qty: 30 0RF risperidone 2 mg Tablet 2 mg PO BEDTIME Qty: 30 0RF folic acid 1 mg Tablet 1 mg PO DAILY Qty: 30 0RF thiamine mononitrate (vit B1) 100 mg Tablet 200 mg PO DAILY Qty: 30 0RF trazodone 50 mg tablet 50 mg PO BEDTIME 30 Days Qty: 30 0RF acetaminophen [Tylenol Extra Strength] 500 mg tablet 500 mg PO Q6H PRN (Reason: pain or fever) Qty: 20 0RF lidocaine [Lidoderm] 5 % adhesive patch,medicated 1 patch topical DAILY MDD remove after 12 hours PRN (Reason: pain) Qty: 30 0RF Rx Instructions: leave on most painful area for up to 12 hrs naproxen 500 mg tablet 500 mg PO BID PRN (Reason: pain) 10 Days Qty: 20 0RF
[2022-08-30 15:10] VITALS: PULSE 77; RESP 20; O2SAT 95
[2022-08-30] MEDS: methylPREDNISolone Sod Succ 125 MG/2 ML VIAL IVPUSH (15:21)
[2022-08-30] MEDS: Magnesium Sulfate/H2O 2 GM/50 ML PIGGYBACK IV (15:21)
[2022-08-30 15:51] LABS: MANUAL DIFF FLAG NO
[2022-08-30 15:52] LABS: Basophils Percent Auto 0.5 % (0-2); Eosinophils Absolute Auto 0.2 X10*3/uL (0.0-0.4); Eosinophils Percent Auto 2.6 % (0-4); Hematocrit 34.9 % (37.0-47.0); Hemoglobin 11.9 g/dl (12.0-16.0); Imm Gran Abs Auto 0.03 X10*3/uL (0.00-0.03); Imm Gran Pct Auto 0.5 % (0.0-0.4); Lymphocytes Percent Auto 30.5 % (20-40); Mean Corpuscular HGB Conc 34.1 g/dl (31.0-35.0); Mean Corpuscular Volume 85.1 fL (80.0-98.0); Mean Platelet Volume 9.2 fL (9.4-12.3); Monocytes Absolute Auto 0.9 X10*3/uL (0.1-1.2); Monocytes Percent Auto 13.3 % (2-11); Neutrophils Absolute Auto 3.4 x10*3/uL (2.0-8.3); Neutrophils Percent Auto 52.6 % (45-73); Platelet Count 232 X10*3/uL (160-400); Red Cell Distribution Width 13.8 % (11.0-16.0); White Blood Count 6.5 X10*3/uL (4.8-10.8)
[2022-08-30 16:12] LABS: Lactic Acid 0.9 mmol/L (0.5-2.0)
[2022-08-30 16:15] LABS: Anion Gap 12 (12-20); Blood Urea Nitrogen 15 mg/dL (9-16); Calcium 9.1 mg/dL (8.4-10.2); Carbon Dioxide 28 mmol/L (22-29); Chloride 102 mmol/L (96-108); Creatinine Clr Calc Pharmacy 51.3; Estimated Glomerular Filt Rate > 60; Glucose Random 121 mg/dL (60-115); Potassium 3.8 mmol/L (3.3-5.1); Sodium 138 mmol/L (135-145)
[2022-08-30 16:16] LABS: B Type Natriuretic Peptide < 10 pg/mL (<100)
[2022-08-30 16:18] LABS: Ethanol < 10 mg/dL
[2022-08-30 16:19] LABS: Troponin-I High Sensitivity < 3.5 ng/L (<3.5-17.0)
--- NOTE | 2022-08-30 16:24 | MHC.EDTECH ---
[facility] CALL[facility] WITH THEIR NURSING PHONE NUMBER [phone]. THIS NUMBER CAN BE CALLED FOR TRANSPORT HOME PRIOR TO 8:30 PM AND FOR ANY MEDICAL QUESTIONS.
[2022-08-30 16:34] LABS: Influenza A PCR NEGATIVE (Negative); Influenza B PCR NEGATIVE (Negative); Resp Syncy Virus RNA Qual PCR POSITIVE (Negative); SARS COV2 PCR INHOUSE NEGATIVE (Negative)
[2022-08-30 16:40] VITALS: BP 108/49; PULSE 97; RESP 18; TEMP 36.8; O2SAT 92
--- NOTE | 2022-08-30 16:59 | P.HPHOSP_ITS ---
History of Present Illness Date of Service: 08/30/22 Chief Complaint: sob 62-year-old woman with history of asthma presenting to the ER from walk-in clinic with chest congestion, chills, sore throat and drycough for 3 days. She does negative for COVID at home. Denies chest pain, nausea, vomiting, diarrhea, sick contacts, recent travel. RSV noted to be positive, all labs within acceptable limits. Patient is stable. No documented hypoxia and in fact was 96% on room air at the walk-in clinic. However she is having expiratory wheezing. She was given a dose of Solu-Medrol, albuterol, IV magnesium. To rep lace observation for further management of acute asthma exacerbation. Review of Systems Review of Systems: Denies any recent fever chills or decrease in appetite respiratory see HPI cardiovascular denies chest pain gastrointestinal denies any dysphagia abdominal pain nausea vomiting or diarrhea genitourinary denies any dysuria frequency or hematuria musculoskeletal denies any joint pain or swelling neuropsych denies any weakness or seizures all other systems reviewed are negative [facility] Medical History Alcohol dependence Arthritis Hypothyroidism Surgical History History of right hip replacement Social History Household Members: Unknown / Unable to assess Do you presently have visiting nurse or other home services: No Cigarette Packs Per Day: 1 Cigarettes Per Day: 20 Second Hand Smoke Exposure: No Substance Use Type: Marijuana Advance Directives: No Advance Directives Information Provided: No service: No Sexual orientation: Did not discuss Meds Allergies Allergy/AdvReac Type Severity Reaction Status Date / Time metoclopramide AdvReac Unknown BRADYCARDIA Verified 08/30/22 14:34 morphine AdvReac Unknown SEIZURE Verified 08/30/22 14:34 Active Medications: Current Medications Pharmacy Consult (Consult Rx Perform Med Rec) 1 each MISCELLANE ONCE PRN PRN Reason: Consult order Home Medications Medication Instructions Recorded Confirmed Last Taken Type cyanocobalamin (vitamin B-12) 1,000 mcg sublingual BID 08/30/22 08/30/22 08/30/22 History 1,000 mcg sublingual tablet gabapentin 100 mg capsule 100 mg PO BID 08/30/22 08/30/22 08/30/22 History lamotrigine 25 mg tablet (Lamictal) 50 mg PO BID 08/30/22 08/30/22 08/30/22 History levothyroxine 200 mcg tablet 200 mcg PO DAILY 08/30/22 08/30/22 08/30/22 History naltrexone 50 mg tablet 50 mg PO DAILY 08/30/22 08/30/22 08/30/22 History risperidone 3 mg tablet (Risperdal) 3 mg PO BID 08/30/22 08/30/22 08/30/22 History thiamine mononitrate (vit B1) 100 100 mg PO DAILY 08/30/22 08/30/22 08/30/22 History mg tablet trazodone 100 mg tablet 100 mg PO BEDTIME 08/30/22 08/30/22 08/29/22 History Physical Exam Vital Signs and Narrative: Vital Signs: Last Vital Signs Temp 98.3 F 08/30/22 16:40 Pulse 97 08/30/22 16:40 Resp 18 08/30/22 16:40 BP 108/49 L 08/30/22 16:40 Pulse Ox 92 08/30/22 16:40 O2 Del Method 08/30/22 16:40 BMI result Body Mass Index 28.7 Appearing in no acute distress head is normocephalic atraumatic eyes pupils are PERRLA sclera is anicteric mouth throat mucous membranes are intact and moist neck is supple no lymphadenopathy, no JVD noted lung sounds expiratory wheezing heart regular rate rhythm, clear S1, S2 positive bowel sounds, abdomen is soft, nontender neuro patient is alert x3, no focal deficits Results Labs 08/30/22 15:38 08/30/22 15:38 Labs: Laboratory Results - last 24 hr 08/30/22 08/30/22 08/30/22 15:38 15:38 15:38 MCV 85.1 MCH 29.0 MCHC 34.1 RDW 13.8 Plt Count 232 MPV 9.2 L Immature Gran % (Auto) 0.5 H Neut % (Auto) 52.6 Lymph % (Auto) 30.5 [place] % (Auto) 13.3 H Eos % (Auto) 2.6 Baso % (Auto) 0.5 Lymph # (Auto) 2.0 [place] # (Auto) 0.9 Eos # (Auto) 0.2 Baso # (Auto) 0.0 Abs Immat Gran (auto) 0.03 Absolute Neuts (auto) 3.4 Absolute Nucleated RBC 0.000 Nucleated RBC % (auto) 0.0 Anion Gap 12 Estim Creat Clear Calc 51.3 Estimated GFR > 60 Random Glucose 121 H Lactic Acid 0.9 Calcium 9.1 Troponin I High Sens B-Natriuretic Peptide Ethyl Alcohol Influenza Type A (PCR) Influenza Type B (PCR) RSV RNA Qual (PCR) SARS-CoV-2 RNA (RT-PCR) 08/30/22 08/30/22 08/30/22 15:38 15:38 15:38 MCV MCH MCHC RDW Plt Count MPV Immature Gran % (Auto) Neut % (Auto) Lymph % (Auto) [place] % (Auto) Eos % (Auto) Baso % (Auto) Lymph # (Auto) [place] # (Auto) Eos # (Auto) Baso # (Auto) Abs Immat Gran (auto) Absolute Neuts (auto) Absolute Nucleated RBC Nucleated RBC % (auto) Anion Gap Estim Creat Clear Calc Estimated GFR Random Glucose Lactic Acid Calcium Troponin I High Sens < 3.5 B-Natriuretic Peptide < 10 Ethyl Alcohol < 10 Influenza Type A (PCR) Influenza Type B (PCR) RSV RNA Qual (PCR) SARS-CoV-2 RNA (RT-PCR) 08/30/22 15:40 MCV MCH MCHC RDW Plt Count MPV Immature Gran % (Auto) Neut % (Auto) Lymph % (Auto) [place] % (Auto) Eos % (Auto) Baso % (Auto) Lymph # (Auto) [place] # (Auto) Eos # (Auto) Baso # (Auto) Abs Immat Gran (auto) Absolute Neuts (auto) Absolute Nucleated RBC Nucleated RBC % (auto) Anion Gap Estim Creat Clear Calc Estimated GFR Random Glucose Lactic Acid Calcium Troponin I High Sens B-Natriuretic Peptide Ethyl Alcohol Influenza Type A (PCR) NEGATIVE Influenza Type B (PCR) NEGATIVE RSV RNA Qual (PCR) POSITIVE A SARS-CoV-2 RNA (RT-PCR) NEGATIVE Imaging Radiologist's Impressions: Impressions Chest X-Ray 08/30/22 15:08 IMPRESSION: No acute cardiopulmonary process. Assessment and Plan (1) Asthma with exacerbation: Status: Acute Plan 62-year-old woman admitted with acute asthma exacerbation and RSV. Lives in a long term. Mild intermittent asthma with acute exacerbation and RSV No documented hypoxia, no consolidation on chest x-ray schedule Solu-Medrol albuterol Robitussin for cough Supplemental oxygen if needed Normocytic anemia Stable H&H Hypothyroidism Continue levothyroxine Mental health Continue home medications Smoker Offered nicotine replacement therapy Discussed importance of smoking cessation DVT prophylaxis with Lovenox Attending Dr. Villareal Full code Observation Time Spent With Patient Time: Total time managing care of this patient today ____ minutes. Quality Stroke Does the patient have a stroke diagnosis?: No VTE Prior VTE?: No VTE Risk Level:: Medical - moderate - high VTE Device Contraindication: Treatment Not Indicated VTE Drug Contraindication: N/A - Med Ordered
[2022-08-30] MEDS: Albuterol Sulfate 2.5 MG, Albuterol Sulfate (0.083%) 2.5 MG 5 MG INHALE (17:00)
[2022-08-30 17:01] VITALS: PULSE 94; RESP 20; O2SAT 100
--- NOTE | 2022-08-30 17:44 | PHA.MEDREC ---
Pharmacy Consult ? Medication Reconciliation Pharmacy has completed the medication reconciliation.
[2022-08-30] MEDS: Albuterol Sulfate (0.083%) 2.5 MG/3 ML VIAL.NEB INHALE (20:31)
[2022-08-30 20:32] VITALS: PULSE 94; RESP 20; O2SAT 100
[2022-08-30] MEDS: Enoxaparin Sodium 40 MG/0.4 ML SYRINGE SUBCUT (21:04)
[2022-08-30] MEDS: lamoTRIgine 25 MG TABLET 50 MG PO (21:05)
[2022-08-30] MEDS: risperiDONE 3 MG TABLET PO (21:05)
[2022-08-30] MEDS: traZODone HCL 100 MG TABLET PO (21:05)
[2022-08-30] MEDS: Gabapentin 100 MG CAPSULE PO (21:05)
[2022-08-30 22:43] VITALS: BP 100/38; PULSE 67; O2SAT 93
[2022-08-30] MEDS: methylPREDNISolone Sod Succ 40 MG/ML VIAL IVPUSH (23:50)
[2022-08-30] MEDS: 0.9 % Sodium Chloride Flush 3 ML SYRINGE IVFLUSH (23:50)
[2022-08-31 03:55] VITALS: BP 115/70; PULSE 62; RESP 14; TEMP 36.9; O2SAT 96
[2022-08-31 06:24] LABS: Hematocrit 34.1 % (37.0-47.0); Hemoglobin 11.5 g/dl (12.0-16.0); Mean Corpuscular HGB Conc 33.7 g/dl (31.0-35.0); Mean Corpuscular Hemoglobin 28.6 pg (27.0-33.0); Mean Corpuscular Volume 84.8 fL (80.0-98.0); Mean Platelet Volume 9.6 fL (9.4-12.3); Platelet Count 241 X10*3/uL (160-400); Red Blood Count 4.02 X10*6/uL (4.20-5.50); Red Cell Distribution Width 13.7 % (11.0-16.0); White Blood Count 10.3 X10*3/uL (4.8-10.8)
--- NOTE | 2022-08-31 06:24 | PC.NURSE ---
pharmacy called for synthroid po not available in the pyxis
[2022-08-31 06:43] LABS: Anion Gap 14 (12-20); Blood Urea Nitrogen 11 mg/dL (9-16); Calcium 9.5 mg/dL (8.4-10.2); Carbon Dioxide 22 mmol/L (22-29); Chloride 105 mmol/L (96-108); Creatinine Clr Calc Pharmacy 58.1; Estimated Glomerular Filt Rate > 60; Glucose Random 191 mg/dL (60-115); Potassium 4.4 mmol/L (3.3-5.1); Sodium 137 mmol/L (135-145)
[2022-08-31] MEDS: Levothyroxine Sodium 200 MCG TABLET PO (06:51)
[2022-08-31] MEDS: Albuterol Sulfate (0.083%) 2.5 MG/3 ML VIAL.NEB INHALE ×2 (08:17→12:48)
[2022-08-31 08:18] VITALS: PULSE 96; RESP 18; O2SAT 97
[2022-08-31] MEDS: methylPREDNISolone Sod Succ 40 MG/ML VIAL IVPUSH (08:22)
[2022-08-31] MEDS: Gabapentin 100 MG CAPSULE PO (08:23)
[2022-08-31] MEDS: Thiamine HCL 100 MG TABLET PO (08:23)
[2022-08-31] MEDS: lamoTRIgine 25 MG TABLET 50 MG PO (08:23)
[2022-08-31] MEDS: Naltrexone HCl 50 MG TABLET PO (08:23)
[2022-08-31] MEDS: risperiDONE 3 MG TABLET PO (08:23)
[2022-08-31] MEDS: Folic Acid 1 MG TABLET PO (08:23)
[2022-08-31] MEDS: 0.9 % Sodium Chloride Flush 3 ML SYRINGE IVFLUSH (08:23)
--- NOTE | 2022-08-31 10:53 | MHC.CM.PN ---
Patient has RSV; CM spoke with her @[phone] and addressed LAMB with her (original to be given to her and a copy to be placed on the chart). Patient lives at [address] [place] [address] and the goal is to return there once Patient is medically cleared for dc. CM has initiated and will follow for dc planning. Patient has received Covid vax x2 and her PCP is Dr. Joe Barboza.
[2022-08-31 12:49] VITALS: PULSE 91; RESP 18; O2SAT 96
--- NOTE | 2022-08-31 13:14 | PM.DS ---
DS: Providers Provider Date of Service: 08/31/22 Date of admission: 08/30/22 16:55 Primary care physician: Joe Barboza III, MD DS: Diagnosis Discharge Diagnosis (1) Asthma with exacerbation: Status: Acute DS: Summary Hospital Course Hospital Course: Date of Service: 08/30/22 Chief Complaint: sob ?62-year-old woman with history of asthma presenting to the ER from walk-in clinic with chest congestion, chills, sore throat and? drycough for 3 days.? She does negative for COVID at home. Denies chest pain, nausea, vomiting, diarrhea, sick contacts, recent travel.? RSV noted to be positive, all labs within acceptable limits.? Patient is stable.? No documented hypoxia and in fact was 96% on room air at the walk-in clinic.? However she is having expiratory wheezing.? She was given a dose of Solu-Medrol, albuterol, IV magnesium.? To replace observation for further management of acute asthma exacerbation. Hospital course 62-year-old woman admitted with acute asthma exacerbation and RSV, Lives in a half-way, patient with history of mild intermittent asthma, admitted to medical floor chest x-ray showed no infiltrate patient treated with IV Solu Medrol, and albuterol updraft, patient responded rapidly to above treatment, oxygenation remains stable on room air patient is ambulating with no worsening shortness of breath therefore being discharged home on 5 days of by mouth prednisone and albuterol MDI 2 puffs Q 6 hour as needed recommend to avoid crowded places and to abstain from smoking she has been given nicotine patch, recommend to use cough medication as needed Normocytic anemia noted to have stable H&H Hypothyroidism Continue levothyroxine Time Spent with Patient Time attestation: Total time managing care of this patient today ____ minutes. Discharge coordination time: Greater than 30 minutes Quality: Safe Use of Opioids Does Pt have an Active Cancer Diagnosis on the Problem List?: No Quality: Stroke Does the patient have a stroke diagnosis?: No Physical Exam Vital Signs: Vital Signs: Last Vital Signs Temp 98.5 F 08/31/22 03:55 Pulse 91 08/31/22 12:49 Resp 18 08/31/22 12:49 BP 115/70 08/31/22 03:55 Pulse Ox 96 08/31/22 03:55 O2 Del Method 08/31/22 03:55 BMI result Body Mass Index 28.7 Const: Other: General awake alert x3, in no acute distress. Neck no JVD. CVS regular rate rhythm, Respiratory lungs occasional wheeze, no respiratory distress Gastrointestinal abdomen soft, nontender, bowel sounds audible Extremities no edema. Neuro nonfocal Skin no rash Psych appropriate affect DS: Data Data Completed and Pending Labs on day of discharge: Laboratory Results - last 24 hr 08/30/22 08/30/22 08/30/22 15:38 15:38 15:38 WBC 6.5 RBC 4.10 L Hgb 11.9 L Hct 34.9 L MCV 85.1 MCH 29.0 MCHC 34.1 RDW 13.8 Plt Count 232 MPV 9.2 L Immature Gran % (Auto) 0.5 H Neut % (Auto) 52.6 Lymph % (Auto) 30.5 [place] % (Auto) 13.3 H Eos % (Auto) 2.6 Baso % (Auto) 0.5 Lymph # (Auto) 2.0 [place] # (Auto) 0.9 Eos # (Auto) 0.2 Baso # (Auto) 0.0 Abs Immat Gran (auto) 0.03 Absolute Neuts (auto) 3.4 Absolute Nucleated RBC 0.000 Nucleated RBC % (auto) 0.0 Sodium 138 Potassium 3.8 Chloride 102 Carbon Dioxide 28 Anion Gap 12 BUN 15 Creatinine 0.94 Estim Creat Clear Calc 51.3 Estimated GFR > 60 Random Glucose 121 H Lactic Acid 0.9 Calcium 9.1 Troponin I High Sens B-Natriuretic Peptide Ethyl Alcohol Influenza Type A (PCR) Influenza Type B (PCR) RSV RNA Qual (PCR) SARS-CoV-2 RNA (RT-PCR) 08/30/22 08/30/22 08/30/22 15:38 15:38 15:38 WBC RBC Hgb Hct MCV MCH MCHC RDW Plt Count MPV Immature Gran % (Auto) Neut % (Auto) Lymph % (Auto) [place] % (Auto) Eos % (Auto) Baso % (Auto) Lymph # (Auto) [place] # (Auto) Eos # (Auto) Baso # (Auto) Abs Immat Gran (auto) Absolute Neuts (auto) Absolute Nucleated RBC Nucleated RBC % (auto) Sodium Potassium Chloride Carbon Dioxide Anion Gap BUN Creatinine Estim Creat Clear Calc Estimated GFR Random Glucose Lactic Acid Calcium Troponin I High Sens < 3.5 B-Natriuretic Peptide < 10 Ethyl Alcohol < 10 Influenza Type A (PCR) Influenza Type B (PCR) RSV RNA Qual (PCR) SARS-CoV-2 RNA (RT-PCR) 08/30/22 08/31/22 08/31/22 15:40 06:13 06:13 WBC 10.3 RBC 4.02 L Hgb 11.5 L Hct 34.1 L MCV 84.8 MCH 28.6 MCHC 33.7 RDW 13.7 Plt Count 241 MPV 9.6 Immature Gran % (Auto) Neut % (Auto) Lymph % (Auto) [place] % (Auto) Eos % (Auto) Baso % (Auto) Lymph # (Auto) [place] # (Auto) Eos # (Auto) Baso # (Auto) Abs Immat Gran (auto) Absolute Neuts (auto) Absolute Nucleated RBC 0.000 Nucleated RBC % (auto) 0.0 Sodium 137 Potassium 4.4 Chloride 105 Carbon Dioxide 22 Anion Gap 14 BUN 11 Creatinine 0.83 Estim Creat Clear Calc 58.1 Estimated GFR > 60 Random Glucose 191 H Lactic Acid Calcium 9.5 Troponin I High Sens B-Natriuretic Peptide Ethyl Alcohol Influenza Type A (PCR) NEGATIVE Influenza Type B (PCR) NEGATIVE RSV RNA Qual (PCR) POSITIVE A SARS-CoV-2 RNA (RT-PCR) NEGATIVE Discharge Plan Discharge Anticipated Discharge Date/Time: 08/31/22 13:08 Patient Disposition: Home, Self-Care Discharge Diagnosis: Acute asthma exacerbation Referrals: Joe Barboza III, MD [Primary Care Provider] - 1 Week Discharge Medications: New albuterol sulfate 90 mcg/actuation HFA aerosol inhaler 2 puff inhalation Q6H PRN (Reason: shortness of breath or wheezing) Qty: 8.5 0RF prednisone 20 mg tablet 20 mg PO DAILY Qty: 5 0RF Rx Instructions: take with food nicotine 7 mg/24 hr patch 24 hour 1 patch transdermal Q24H Qty: 14 0RF Continued folic acid 1 mg Tablet 1 mg PO DAILY Qty: 30 0RF risperidone [Risperdal] 3 mg Tablet 3 mg PO BID lamotrigine [Lamictal] 25 mg Tablet 50 mg PO BID trazodone 100 mg Tablet 100 mg PO BEDTIME levothyroxine 200 mcg Tablet 200 mcg PO DAILY cyanocobalamin (vitamin B-12) 1,000 mcg Tablet, Sublingual 1,000 mcg SUBLINGUAL BID naltrexone 50 mg tablet 50 mg PO DAILY gabapentin 100 mg capsule 100 mg PO BID thiamine mononitrate (vit B1) 100 mg tablet 100 mg PO DAILY Discharge Orders: Discharge Order (Routine); Ordered 08/31/22 Ordered By: Merirck Cueto Diet: Advance to usual diet Activity on Discharge: As tolerated Stand Alone Forms: Patient Portal Discharge page Care Plan Goals: Mild asthma exacerbation with RSV infection recommended to abstain from smoking avoid crowded places stick prednisone 20 mg daily for 5 days with food and use albuterol inhaler for shortness of breath and tightness, chest x-ray showed no pneumonia Use [id number] cough medication as needed for Health Concerns: Resume all home medications Plan of Treatment: Follow-up with primary care physician Assessment: as above
--- NOTE | 2022-08-31 13:16 | MHC.CM.PN ---
Patient has been medically cleared for dc to home (Alf) today, self care. CM offered Patient a bus pass but she stated that she would be calling for an uber.
== END 2022-08-31 14:00 | disposition home or self-care (01) ==
LOC: HO.ED 16:50 → HO.EDOVER 16:58
PROVIDERS: Admitting Provider Nurse Practitioner Acute Care; Emergency Provider Emergency Medicine Emergency Medical Services; PCP Internal Medicine; Visit Provider Hospitalist
DX: J06.9 Acute upper respiratory infection, unspecified (principal); B97.4 Respiratory syncytial virus as the cause of diseases classified elsewhere; J45.901 Unspecified asthma with (acute) exacerbation; J02.8 Acute pharyngitis due to other specified organisms; R09.89 Other specified symptoms and signs involving the circulatory and respiratory systems; R06.02 Shortness of breath; R05.9 Cough, unspecified; Z20.822 Contact with and (suspected) exposure to COVID-19; Z20.828 Contact with and (suspected) exposure to other viral communicable diseases
CPT/HCPCS: 0241U; 36415; 71045; 80048; 82077; 83605; 83880; 84484; 85025; 85027; 87040; 93005; 94640; 96365; 96366; 96375; 99222; 99285; J1650; J2920; J2930; J3475

== ENCOUNTER 2024-01-01 11:23 | Outpatient (AMB) | payer OTHER, SELFPAY ==
[2024-01-01 11:36] VITALS: BP 110/72; PULSE 72; TEMP 35.7; O2SAT 95; BMI 29.9
--- NOTE | 2024-01-01 11:36 | AM.OFFWIN_ITS ---
Intake Vital Signs 01/01/24 11:36 01/01/24 11:47 Height 4 ft 11 in 4 ft 11 in Weight 148 lb BMI 29.9 BP 110/72 Blood Pressure Location Lt brachial Position Sitting Pulse 72 Pulse Source Pulse Oximeter Temp 96.3 F L Temp Source Temporal Artery Scan Pulse Oximetry (%) 95 Oxygen Delivery Method Room Air Intake Visit Reasons: EST/persistant cough X1 week(lbby masked) Intake Note: pt is here today for persistant cough started 1 week ago Patient Tobacco Use Status: Current everyday Tobacco user Allergies metoclopramide Adverse Reaction (Unknown, Verified 01/01/24 12:37) BRADYCARDIA morphine Adverse Reaction (Unknown, Verified 01/01/24 12:37) SEIZURE Medication List - Last Reconciled 01/01/24 by Robert Fountain MD albuterol sulfate 90 mcg/actuation 2 puffs inhalation Q6H PRN cyanocobalamin (vitamin B-12) 1,000 mcg sublingual BID folic acid 1 mg PO DAILY gabapentin 100 mg PO BID lamotrigine (Lamictal) 50 mg PO BID levothyroxine 200 mcg PO DAILY naltrexone 50 mg PO DAILY nicotine 1 patch transdermal Q24H risperidone (Risperdal) 3 mg PO BID thiamine mononitrate (vit B1) 100 mg PO DAILY trazodone 100 mg PO BEDTIME Do you need a note to return to daycare/school/sports/work: No HPI EST/persistant cough X1 week(lbby masked) HPI Details 63 yr old female presents to the office for a sick visit. She is accompanied by her friend. Patient reports symptoms of wheezing, non productive cough. No fever or chills. Recovering from a dental infection. Currently on Clindamycin and tapering dose of prednisone. [facility] Medical History Arthritis Alcohol dependence Hypothyroidism Surgical History History of right hip replacement Social History Household Members: Unknown / Unable to assess Do you presently have visiting nurse or other home services: No Patient Tobacco Use Status: Current everyday Tobacco user Tobacco use type: Cigarette Cigarette Packs Per Day: 1 Cigarettes Per Day: 20 Years Smoked: 20 Second Hand Smoke Exposure: No Substance Use Type: Marijuana service: No Current occupational status: disabled Sexual orientation: Did not discuss Physical Exam Vital Signs: Last Vital Signs Temp 96.3 F L 01/01/24 11:36 Pulse 72 01/01/24 11:36 BP 110/72 01/01/24 11:36 Pulse Ox 95 01/01/24 11:36 Oxygen Delivery Method Room Air 01/01/24 11:36 BMI result Body Mass Index 29.9 Const General: cooperative and healthy appearing Nutritional Appearance: well nourished Orientation/consciousness: patient oriented x3 Limitations: no limitations HEENT Head: Yes normal to inspection Eyes General: appearance normal, both eyes and all related structures Neck Neck: Yes normal visual inspection Chest Chest palpation & inspection: normal palpation of entire chest wall Resp Other: Scattered wheeze bilaterally. Effort & Inspection: normal respiratory effort Neuro General: patient oriented x3 Assessment & Plan Assessment & Plan (1) Acute bronchitis: Code(s): J20.9 - Acute bronchitis, unspecified Plan: Continue current abx and steroids. Inhalers added to the orders. If sx not better to follow up here. Coding Level of Care Code Est Pt Level 3 (47992) Diagnoses Acute bronchitis J20.9
== END 2024-01-01 12:58 | disposition home or self-care (01) ==
PROVIDERS: PCP Internal Medicine; Visit Provider Internal Medicine
DX: J20.9 Acute bronchitis, unspecified (principal)
CPT/HCPCS: 99213

== ENCOUNTER 2024-01-05 12:42 | Outpatient (AMB) | payer OTHER, SELFPAY ==
[2024-01-05 12:58] VITALS: BP 118/80; PULSE 78; O2SAT 90
--- NOTE | 2024-01-05 12:58 | MHC.OFFWIV ---
Intake Vital Signs 01/05/24 12:58 Height 4 ft 11 in BP 118/80 Blood Pressure Location Rt brachial Position Sitting Pulse 78 Pulse Source Pulse Oximeter Pulse Oximetry (%) 90 L Oxygen Delivery Method Room Air Intake Visit Reasons: EST/ persistent cough not getting better (lobby) Intake Note: pt is here for persistent cough not getting better Patient Tobacco Use Status: Current everyday Tobacco user Allergies metoclopramide Adverse Reaction (Unknown, Verified 01/05/24 12:59) BRADYCARDIA morphine Adverse Reaction (Unknown, Verified 01/05/24 12:59) SEIZURE Do you need a note to return to daycare/school/sports/work: No HPI EST/ persistent cough not getting better (lobby) HPI Details This is a 63 year old female patient who presents today with ongoing cough and shortness of breath. She was seen here on 12/31 for this. At the time she was recovering from a dental procedure and already on Clindamycin and a steroid taper. She was advised to continue these regimens, and an inhaler was also added. She returns today with ongoing/worsening productive cough, wheezing, and shortness of breath. Denies fever/chills. Denies any other URI symptoms. [facility] Medical History Arthritis Alcohol dependence Hypothyroidism Surgical History History of right hip replacement Social History Household Members: Unknown / Unable to assess Do you presently have visiting nurse or other home services: No Patient Tobacco Use Status: Current everyday Tobacco user Tobacco use type: Cigarette Cigarette Packs Per Day: 1 Cigarettes Per Day: 20 Years Smoked: 20 Second Hand Smoke Exposure: No Substance Use Type: Marijuana service: No Current occupational status: disabled Sexual orientation: Did not discuss Review of Systems Const All systems reviewed & are unremarkable except as noted in HPI and below Physical Exam Vital Signs: Last Vital Signs Pulse 78 01/05/24 12:58 BP 118/80 01/05/24 12:58 Pulse Ox 90 L 01/05/24 12:58 Oxygen Delivery Method Room Air 01/05/24 12:58 Const General: cooperative and no acute distress HEENT Head: Yes normal to inspection Ears: hearing grossly normal bilaterally General nose exam: Normal external nose present and Normal nasal mucous membranes and turbinates present Face and sinus: Yes normal facial exam Mouth: Normal oral and palatal mucosa present Throat: Yes posterior oropharynx normal Neck Neck: Yes no lymphadenopathy Resp Effort & Inspection: Actively coughing Quality: productive Auscultation: rhonchi upper bilaterally and wheezes throughout Cardio Rate: regular rate Rhythm: regular rhythm Heart sounds: S1 normal heart sound present and S2 normal heart sound present Skin General skin exam: no rashes or lesions noted Neuro General: no focal motor deficits Extrem General: Yes capillary refill normal and Yes no clubbing, cyanosis or edema Psych Appearance: grossly normal Mental Status: mental status grossly normal Speech and movement: Normal speech and movement present Office Procedures Nebulizer Treatment Nebulizer Treatment [id number] RX initial, or Nebulizer Subsequent Treatment Office Meds ipratropium 0.5 mg-albuterol 3 mg (2.5 mg base)/3 mL nebulization soln Performing Provider: ANDRE Jimenez Performing Location: [facility] Administered by: ANDRE Jimenez on 01/05/24 14:26 Dose Route Admin Location Dispensed Lot Number Expiration Date ND [employer] 3 mL inhalation 3 mL [id number] 10/11/25 90893-293-78 [employer] Assessment & Plan Assessment & Plan (1) Shortness of breath: Code(s): R06.02 - Shortness of breath Plan: DuoNeb treatment provided in the office today with good effect. Rhonchi and wheezing significantly reduced following treatment, and SaO2 sat up to 95% from 90% on RA. I am going to start patient on course of prednisone and also an antibiotic. We reviewed indication, use, possible side effects of medications. She may continue to use inhaler at home. Patient declined any viral testing today. Covid at home was negative. Patient was strongly encouraged to go to the emergency department if she does not improve with treatment, or if symptoms worsen/do symptoms such as fever, chills, worsening shortness of breath, or reduced SaO2 at home occur. Patient verbalizes understanding and agrees to plan. (2) Cough: Code(s): R05.9 - Cough, unspecified Qualifiers: Cough type: acute Qualified Code(s): R05.1 - Acute cough Plan: As above. Orders: Orders XR chest 2V Today R05.9 - Cough, unspecified, R06.02 - Shortness of breath AMB Nebulizer Treatment Today R05.9 - Cough, unspecified, R06.02 - Shortness of breath Medications: New ipratropium-albuterol 0.5 mg-3 mg(2.5 mg base)/3 mL 3 mL inhalation ONCE 3 mL 0RF R05.9 - Cough, unspecified, R06.02 - Shortness of breath amoxicillin-pot clavulanate 875-125 mg 1 tab PO BID 7 days 14 tabs 0RF R05.1 - Acute cough, R06.02 - Shortness of breath prednisone 20 mg PO BID 5 days 10 tabs 0RF R05.1 - Acute cough, R06.02 - Shortness of breath Coding Level of Care Code Est Pt Level 4 (72028) Diagnoses Shortness of breath R06.02 Acute cough R05.1 Cough type: acute CPT Codes Nebulizer Treatment - Nebulizer Treatment, initial or subsequent: [id number] RX initial, or Nebulizer Subsequent Treatment ([id number])
== END 2024-01-05 14:25 | disposition home or self-care (01) ==
PROVIDERS: PCP Internal Medicine; Visit Provider Nurse Practitioner Family
DX: R06.02 Shortness of breath (principal); R05.1 Acute cough
CPT/HCPCS: 94640; 99214; J7620

== ENCOUNTER 2024-01-05 13:27 | Outpatient (REF) | payer OTHER, SELFPAY ==
--- NOTE | ~2024-01-05 | XR_ITS ---
EXAMINATION: XR CHEST CLINICAL INFORMATION: Shortness of breath. COMPARISON: Chest radiograph dated 08/30/2022. TECHNIQUE: 2 views of the chest were obtained. FINDINGS: Heart size is normal. There is a right lower lobe opacity for which pneumonia is suspected. The left lung is clear. There is no pleural effusion. No pneumothorax. There are right upper quadrant surgical clips. No acute osseous abnormality. XR/XR chest 2V IMPRESSION: Right lower lobe pneumonia.
== END 2024-01-05 13:28 | disposition home or self-care (01) ==
LOC: HO.HMGCX 13:27
PROVIDERS: PCP Internal Medicine; Visit Provider Nurse Practitioner Family
DX: R06.02 Shortness of breath (principal); R05.9 Cough, unspecified
CPT/HCPCS: 71046